=== PATIENT | female | born 1980 | race Caucasian/White ===

== ENCOUNTER 2021-01-06 20:18 | Emergency (ER) | payer MEDICAID, SELFPAY ==
--- NOTE | ~2021-01-06 | XR_ITS ---
EXAMINATION: XR CHEST CLINICAL INFORMATION: Cough COMPARISON: None TECHNIQUE: Frontal view of the chest was obtained. FINDINGS: No significant abnormality is noted involving the heart, lungs, mediastinum, bony thorax or soft tissues. XR/XR chest 1V IMPRESSION: Unremarkable examination.
[2021-01-06 20:30] VITALS: BP 121/86; PULSE 88; RESP 16; TEMP 36.8; O2SAT 96; BMI 21.6
[2021-01-06 22:28] LABS: Influenza A PCR NEGATIVE (Negative); Influenza B PCR NEGATIVE (Negative); Resp Syncy Virus RNA Qual PCR NEGATIVE (Negative); SARS COV2 PCR INHOUSE NEGATIVE (Negative)
--- NOTE | 2021-01-06 22:31 | ECG_ITS ---
Test Reason : CHEST PAIN Blood Pressure : / mmHG Vent. Rate : 075 BPM Atrial Rate : 075 BPM P-R Int : 148 ms QRS Dur : 084 ms QT Int : 382 ms P-R-T Axes : 049 048 042 degrees QTc Int : 426 ms Normal sinus rhythm Normal ECG No previous ECGs available Referred By: Shaista Zamudio Electronically Signed By:JONNIE MALLOY
[2021-01-06 22:48] LABS: MANUAL DIFF FLAG NO
[2021-01-06 22:49] LABS: Basophils Percent Auto 0.2 % (0-2); Eosinophils Absolute Auto 0.3 X10*3/uL (0.0-0.4); Eosinophils Percent Auto 2.1 % (0-4); Hematocrit 36.4 % (37-47); Hemoglobin 12.7 g/dl (12.0-16.0); Imm Gran Abs Auto 0.03 X10*3/uL (0.00-0.03); Imm Gran Pct Auto 0.3 % (0.0-0.4); Lymphocytes Absolute Auto 3.4 X10*3/uL (1.2-4.9); Lymphocytes Percent Auto 29.1 % (20-40); Mean Corpuscular HGB Conc 34.9 g/dl (31.0-35.0); Mean Corpuscular Hemoglobin 30.1 pg (27.0-33.0); Mean Corpuscular Volume 86.3 fL (80-98); Mean Platelet Volume 9.8 fL (9.4-12.3); Monocytes Absolute Auto 0.7 X10*3/uL (0.1-1.2); Monocytes Percent Auto 6.2 % (2-11); Neutrophils Absolute Auto 7.3 X10*3/uL (2.0-8.3); Neutrophils Percent Auto 62.1 % (45-73); Platelet Count 310 X10*3/uL (160-400); Red Blood Count 4.22 X10*6/uL (4.20-5.50); Red Cell Distribution Width 12.6 % (11.0-16.0); White Blood Count 11.7 X10*3/uL (4.8-10.8)
[2021-01-06 23:10] LABS: Anion Gap 13 (12-20); Blood Urea Nitrogen 22 mg/dL (9-16); Calcium 9.8 mg/dL (8.4-10.2); Carbon Dioxide 29 mmol/L (22-29); Chloride 101 mmol/L (96-108); Creatinine Clr Calc Pharmacy 68.3; Estimated Glomerular Filt Rate > 60; Glucose Random 100 mg/dL (60-115); Potassium 3.1 mmol/L (3.3-5.1); Sodium 140 mmol/L (135-145)
[2021-01-06 23:16] LABS: Troponin-I High Sensitivity < 3.5 ng/L (<3.5-17.0)
--- NOTE | 2021-01-06 23:36 | ED_ITS ---
HPI - URI/Sore Throat General Chief Complaint: Upper Respiratory Symptoms Stated Complaint: ?High blood pressure Time Seen by Provider: 01/06/21 22:30 Source: patient Mode of arrival: ambulatory History of Present Illness HPI Narrative: 40-year-old female with a past medical history of hypertension, tubal ligation, presenting to the ED complaining of dry cough, subjective fever, headaches, chest tightness, & mild SOB x2 days. Denies recent travel, LE edema, sick contacts abdominal pain, nausea/vomiting, diarrhea. MD elicited complaint: fever, cough and rhinorrhea Related Data Previous Rx's Medication Instructions Recorded acetaminophen [Tylenol Extra 500 mg PO Q6H PRN #20 tab 01/06/21 Strength] albuterol sulfate 2 puff INHALATION Q4-6H PRN #6.7 g 01/06/21 benzonatate [Tessalon Perles] 100 mg PO TID PRN #14 cap 01/06/21 fluticasone propionate [Flonase 2 spray INTRANASAL DAILY #16 g 01/06/21 Allergy Relief] Allergies Allergy/AdvReac Type Severity Reaction Status Date / Time No Known Allergies Allergy Verified 01/06/21 20:35 Review of Systems Review of Systems: Constitutional: +Subj Fever, + Chills, No Fatigue, No Malaise ENT/Mouth: No Hearing loss, No Ear Pain, + Nasal Congestion, + sore throat, + Rhinorrhea Eyes: No Eye Pain, No Vision Changes Cardiovascular: + Chest Pain, + SOB, No Edema, No Palpitations Respiratory: + Cough, No Sputum, No Wheezing Gastrointestinal: No Nausea, No Vomiting, No Diarrhea, No Constipation, No Abdominal pain Musculoskeletal: No joint pain, No Myalgias, No Joint Swelling Skin: No Skin Lesions, No rash Neuro: No Weakness, No Numbness, + Headache Yes all other systems are reviewed and are negative PMFSH Past Medical History Attestation statement: The following information was validated with the patient. Medical History (Updated 01/06/21 @ 23:43 by YSABEL Krishnamurthy) Hypertension Surgical History (Updated 01/06/21 @ 20:33 by Katy Cesar RN) H/O tubal ligation Social History Social History Advance Directives: No Advance Directives Information Provided: No Patient : No Physical Exam Vital Signs: Vital Signs: Last Vital Signs Temp 98.3 F 01/06/21 20:30 Pulse 88 01/06/21 20:30 Resp 16 01/06/21 20:30 BP 121/86 01/06/21 20:30 Pulse Ox 96 01/06/21 20:30 Body Mass Index 21.6 Const: General: cooperative, healthy appearing and no acute distress Orientation/consciousness: patient oriented x3 Limitations: no limitations HENMT: Head: Yes normal to inspection Ears: hearing grossly normal bilaterally General nose exam: Normal external nose present Face and sinus: Yes normal facial exam Eyes: General: appearance normal, both eyes and all related structures EOM: EOMs intact bilaterally Neck: Neck: Yes normal visual inspection and Yes no meningeal signs Resp: Effort & Inspection: normal respiratory effort Auscultation: clear to auscultation bilaterally, no rhonchi and no wheezes Cardio: Rate: regular rate Heart sounds: S1 normal heart sound present and S2 normal heart sound present GI: Inspection: Yes normal to inspection Palpation (GI): Soft to palpation, nontender, no guarding and not rigid Skin: Rashes: no rashes Wounds: no wounds Neuro: General: patient oriented x3 and no meningeal signs Gait exam (Neuro): Normal gait present Extrem: General: Yes normal to inspection, Yes no pedal edema and Yes no calf tenderness Course Course Course Narrative: -mild leukocytosis of 11.7, potassium low at 3.1 >p.o. repletion ordered, BUN mildly elevated -Troponin negative, COVID-19/influenza/RSV negative XR chest 1V IMPRESSION: Unremarkable examination. >> results discussed with patient including worrisome signs and symptoms and strict return precautions. Patient verbalized understanding feel safe for discharge home MDM - URI/Sore Throat MDM Narrative Medical decision making narrative: 40-year-old female with a past medical history of hypertension, tubal ligation, presenting to the ED complaining of dry cough, subjective fever, headaches, chest tightness, in mild SOB x2 days. On exam vital signs stable, NAD, nontoxic appearing, lungs CTA, no pedal edema or calf tenderness. Concern for viral syndrome/COVID-19 versus pneumonia. Rule out ACS. Low concern for PE Plan: EKG, labs, CXR, COVID-19 testing Medical Records Attestation: I reviewed the patient's medical records. Lab Data Attestation: I reviewed the patient's lab results. Result diagrams: 01/06/21 22:44 01/06/21 22:44 Labs: Lab Results 01/06/21 01/06/21 01/06/21 Range/Units 21:37 22:44 22:44 WBC 11.7 H (4.8-10.8) X10*3/uL RBC 4.22 (4.20-5.50) X10*6/uL Hgb 12.7 (12.0-16.0) g/dl Hct 36.4 L (37-47) % MCV 86.3 (80-98) fL MCH 30.1 (27.0-33.0) pg MCHC 34.9 (31.0-35.0) g/dl RDW 12.6 (11.0-16.0) % Plt Count 310 (160-400) X10*3/uL MPV 9.8 (9.4-12.3) fL Immature Gran % (Auto) 0.3 (0.0-0.4) % Neut % (Auto) 62.1 (45-73) % Lymph % (Auto) 29.1 (20-40) % Lander % (Auto) 6.2 (2-11) % Eos % (Auto) 2.1 (0-4) % Baso % (Auto) 0.2 (0-2) % Lymph # (Auto) 3.4 (1.2-4.9) X10*3/uL Lander # (Auto) 0.7 (0.1-1.2) X10*3/uL Eos # (Auto) 0.3 (0.0-0.4) X10*3/uL Baso # (Auto) 0.0 (0.0-0.2) X10*3/uL Abs Immat Gran (auto) 0.03 (0.00-0.03) X10*3/uL Absolute Neuts (auto) 7.3 (2.0-8.3) X10*3/uL Absolute Nucleated RBC 0.000 (0.0-0.012) X10*3/uL Nucleated RBC % (auto) 0.0 (0.0-0.2) /100WBC Sodium 140 (135-145) mmol/L Potassium 3.1 L (3.3-5.1) mmol/L Chloride 101 (96-108) mmol/L Carbon Dioxide 29 (22-29) mmol/L Anion Gap 13 (12-20) BUN 22 H (9-16) mg/dL Creatinine 0.68 (0.5-1.4) mg/dL Estim Creat Clear Calc 68.3 Estimated GFR > 60 Random Glucose 100 (60-115) mg/dL Calcium 9.8 (8.4-10.2) mg/dL Troponin I High Sens (<3.5-17.0) ng/L Coronavirus (PCR) NEGATIVE (Negative) Influenza Type A (PCR) NEGATIVE (Negative) Influenza Type B (PCR) NEGATIVE (Negative) RSV RNA Qual (PCR) NEGATIVE (Negative) 01/06/21 Range/Units 22:44 WBC (4.8-10.8) X10*3/uL RBC (4.20-5.50) X10*6/uL Hgb (12.0-16.0) g/dl Hct (37-47) % MCV (80-98) fL MCH (27.0-33.0) pg MCHC (31.0-35.0) g/dl RDW (11.0-16.0) % Plt Count (160-400) X10*3/uL MPV (9.4-12.3) fL Immature Gran % (Auto) (0.0-0.4) % Neut % (Auto) (45-73) % Lymph % (Auto) (20-40) % Lander % (Auto) (2-11) % Eos % (Auto) (0-4) % Baso % (Auto) (0-2) % Lymph # (Auto) (1.2-4.9) X10*3/uL Lander # (Auto) (0.1-1.2) X10*3/uL Eos # (Auto) (0.0-0.4) X10*3/uL Baso # (Auto) (0.0-0.2) X10*3/uL Abs Immat Gran (auto) (0.00-0.03) X10*3/uL Absolute Neuts (auto) (2.0-8.3) X10*3/uL Absolute Nucleated RBC (0.0-0.012) X10*3/uL Nucleated RBC % (auto) (0.0-0.2) /100WBC Sodium (135-145) mmol/L Potassium (3.3-5.1) mmol/L Chloride (96-108) mmol/L Carbon Dioxide (22-29) mmol/L Anion Gap (12-20) BUN (9-16) mg/dL Creatinine (0.5-1.4) mg/dL Estim Creat Clear Calc Estimated GFR Random Glucose (60-115) mg/dL Calcium (8.4-10.2) mg/dL Troponin I High Sens < 3.5 (<3.5-17.0) ng/L Coronavirus (PCR) (Negative) Influenza Type A (PCR) (Negative) Influenza Type B (PCR) (Negative) RSV RNA Qual (PCR) (Negative) ECG Data Attestation: I personally reviewed and interpreted this ECG as follows: ECG interpretation date: 01/06/21 ECG interpretation time: 22:27 Interpretation: EKG normal sinus rhythm with a rate of 75. Nonischemic/no STEMI Discharge Plan Discharge Clinical Impression: Upper respiratory infection Patient Disposition: Home, Self-Care Instructions: Viral Syndrome (ED) Additional Instructions: Your blood work and chest x-ray were reassuring today in the ED Your potassium was mildly low however we gave you potassium today in the ED You tested negative for COVID-19, the flu, and RSV Sabillon Perles for cough, take as needed Flonase is an allergy relief medication Use albuterol inhaler at home as needed for shortness of breath/wheezing Follow-up with her primary care doctor If her symptoms persist or worsen, you develop fever, chest pain, or shortness of breath please return to the ED Ayala an?lisis de saad y radiograf?a de t?rax fueron reconfortantes hoy en el servicio de urgencias. Ayala potasio estaba levemente bajo, sin embargo, hoy le dimos potasio en el servicio de urgencias. Result? negativo para COVID-19, gripe y RSV Sabillon Perles para la tos, oswald seg?n sea necesario Flonase es un medicamento para aliviar las alergias. Use el inhalador de albuterol en casa seg?n sea necesario para la dificultad para respirar / sibilancias Seguimiento con ayala m?dico de atenci?n primaria Si willard s?ntomas persisten o empeoran, tiene fiebre, dolor en el pecho o dificultad para respirar, regrese al servicio de urgencias. Prescriptions: New albuterol sulfate 90 mcg/actuation HFA aerosol inhaler 2 puff inhalation Q4-6H PRN (Reason: shortness of breath or wheezing) Qty: 6.7 RF: 0 acetaminophen [Tylenol Extra Strength] 500 mg tablet 500 mg PO Q6H PRN (Reason: pain or fever) Qty: 20 RF: 0 benzonatate [Tessalon Perles] 100 mg capsule 100 mg PO TID PRN (Reason: cough) Qty: 14 RF: 0 fluticasone propionate [Flonase Allergy Relief] 50 mcg/actuation spray,suspension 2 spray intranasal DAILY Qty: 16 RF: 0 Referrals: Carmita Weaver NP [Primary Care Provider] - 2 days Print Language: Kyrgyz
[2021-01-06] MEDS: Potassium Chloride Packet 20 MEQ PACKET 40 MEQ PO (23:52)
== END 2021-01-07 00:38 | disposition home or self-care (01) ==
PROVIDERS: Physician Assistant; Emergency Provider Internal Medicine; PCP Registered Nurse
DX: J06.9 Acute upper respiratory infection, unspecified (principal); Z20.822 Contact with and (suspected) exposure to COVID-19; R06.02 Shortness of breath; R50.9 Fever, unspecified; I10 Essential (primary) hypertension
CPT/HCPCS: 0241U; 36415; 71045; 80048; 84484; 85025; 93005; 99283; 99284

== ENCOUNTER 2021-08-17 09:43 | Outpatient (REF) | payer MEDICAID, SELFPAY ==
--- NOTE | ~2021-08-17 | XR_ITS ---
EXAMINATION: XR CERVICAL SPINE CLINICAL INFORMATION: Cervicalgia COMPARISON: None TECHNIQUE: 6 views of the cervical spine, inclusive of flexion and extension views, were obtained. FINDINGS: The craniocervical junction is normal. The dens and atlantodental articulation are intact. The cervical vertebra have normal height. Alignment is normal. No fracture, subluxation or prevertebral soft tissue swelling. Facet joints are unremarkable. No evidence of neural foraminal stenosis. The spinal curvature is normal. The disc spaces are normal. The visualized lung apices are normal. XR/XR cervical spine min 6V IMPRESSION: No evidence of degenerative disc disease or neural foraminal stenosis. No significant findings in the cervical spine.
== END 2021-08-17 09:44 | disposition home or self-care (01) ==
LOC: HO.XRAY 09:43
PROVIDERS: Visit Provider Emergency Medicine
DX: M54.2 Cervicalgia (principal)
CPT/HCPCS: 72052

== ENCOUNTER 2021-10-09 11:26 | Emergency (ER) | payer MEDICAID, SELFPAY ==
--- NOTE | 2021-10-09 11:59 | ED.GENADULT ---
HPI - General Adult General Chief complaint: Upper Respiratory Symptoms Stated complaint: cough fever throat burning Time Seen by Provider: 10/09/21 11:59 Source: patient Mode of arrival: ambulatory Limitations: no limitations History of Present Illness HPI narrative: Patient is a 41 year old female presenting to the emergency department today with a cough and feeling generally unwell. Patient states that since yesterday she has had a cough and felt generally unwell. Patient denies any dizziness, lightheadedness, abdominal pain, nausea, vomiting,chills, blurry vision, double vision, loss of vision, chest pain, difficulty breathing, shortness of breath, back pain, night sweats, pain with urination, increased urinary frequency, increased urinary urgency, blood in her urine or stool, syncope or a near syncopal episode, recent trauma or falls, bowel incontinence, bladder incontinence, bowel retention, bladder retention, or any other complaints at this time. Onset (ago): day(s) (1) Relieving factors: none Exacerbating factors: none Associated symptoms: cough Treatments prior to arrival: none Related Data Previous Rx's Medication Instructions Recorded acetaminophen 500 mg tablet 500 mg PO Q6H PRN #20 tab 01/06/21 (Tylenol Extra Strength) albuterol sulfate 90 mcg/actuation 2 puff INHALATION Q4-6H PRN #6.7 g 01/06/21 aerosol inhaler benzonatate 100 mg capsule 100 mg PO TID PRN #14 cap 01/06/21 (Tessalon Perles) fluticasone propionate 50 2 spray INTRANASAL DAILY #16 g 01/06/21 mcg/actuation nasal spray,suspension (Flonase Allergy Relief) Allergies Allergy/AdvReac Type Severity Reaction Status Date / Time No Known Allergies Allergy Verified 01/06/21 20:35 Review of Systems Constitutional: Constitutional: Reports no additional constitutional complaints, Denies chills, Reports fever(s) and Denies night sweats Eyes: Eyes: Reports no additional eye complaints, Denies blurry vision, Denies change in vision, Denies diplopia, Denies eye discharge, Denies loss of vision and Denies eye pain ENT: Denies dizziness Cardiovascular: Cardiovascular: Reports no additional cardiovascular complaints, Denies chest pain, Denies lightheadedness, Denies Loss of Consciousness and Denies dyspnea Respiratory: Respiratory: Reports no additional respiratory complaints, Reports cough and Denies dyspnea Gastrointestinal: Gastrointestinal: Reports no additional gastrointestinal complaints, Denies abdominal pain, Denies melena, Denies hematochezia, Denies change in bowel habits and Denies change in stool character Genitourinary: Genitourinary: Denies hematuria, Denies urinary frequency, Denies dysuria, Denies urinary incontinence, Denies urinary hesitancy and Denies urinary urgency Musculoskeletal: Musculoskeletal: Reports no additional musculoskeletal complaints, Denies numbness and Denies tingling Neurologic: Denies dizziness, Denies loss of vision, Denies numbness and Denies tingling Psychiatric: Psychiatric: Reports no additional psychiatric complaints Endocrine: Endocrine: Reports no additional endocrine complaints Hematologic/Lymphatic: Hematologic/Lymphatic: Reports no additional hematologic/lymphatic complaints Allergic/Immunologic: Allergic/Immunologic: Reports no additional allergic/immunologic complaints PMFSH Past Medical History Attestation statement: The following information was validated with the patient. Source: old records reviewed Medical History Hypertension Surgical History H/O tubal ligation Social History Social History Advance Directives: No Advance Directives Information Provided: Yes Physical Exam ED Vital Signs: Vital Signs - 24 hr 10/09/21 12:16 Temperature 98.5 F Pulse Rate 110 H Respiratory Rate 16 Blood Pressure 121/73 Pulse Oximetry 96 BMI result Body Mass Index 24.8 Const General: cooperative, no acute distress, alert and awake Nutritional Appearance: well nourished Orientation/consciousness: patient oriented x3 Limitations: no limitations [facility] Head: Yes normal to inspection and Yes atraumatic Ears: hearing grossly normal bilaterally and external ears normal General nose exam: Normal external nose present, no nasal discharge noted and no epistaxis Face and sinus: Yes normal facial exam, No abrasion and No laceration Mouth: Normal oral and palatal mucosa present, no drooling and no muffled voice Eyes General: appearance normal, both eyes and all related structures Periorbital: periorbital findings normal Eyelids: Yes eyelids normal Conjunctivae: conjunctivae normal Pupils: Equal, round and reactive pupils present EOM: EOMs intact bilaterally Neck Neck: Yes normal visual inspection, Yes full ROM and Yes no lymphadenopathy Chest Chest palpation & inspection: normal inspection of the chest Resp Effort & Inspection: normal respiratory effort and able to speak in complete sentences Auscultation: clear to auscultation bilaterally Cardio Rate: regular rate Rhythm: regular rhythm GI Inspection: Yes normal to inspection Neuro General: patient oriented x3 and moves all extremities Cranial nerves: Yes Equal, round and reactive pupils present Cognition (Neuro): normal cognition Motor exam (neuro): 5/5 motor strength present throughout Sensory Exam: Normal double simultaneous stimulation for sensation Coordination: [id number] test normal Extrem General: Yes normal to inspection, Yes full ROM and Yes capillary refill normal Psych Appearance: grossly normal Mental Status: mental status grossly normal Affect: normal affect Attitude: cooperative Thought process: Normal thought process present Thought content: Normal thought content present Insight: Good insight present (Psych) Medical Decision Making MDM Narrative Medical decision making narrative: Patient is a 41 year old female presenting to the emergency department today with a cough and feeling generally unwell. Patient's physical exam was unremarkable. Patient's rapid influenza was positive. Patient's rapid COVID-19 and strep were negative. I explained my physical exam findings as well as all test results to the patient. I answered all questions asked by the patient. I stressed the importance of the patient taking her medication as prescribed. I stressed the importance of the patient following up with her primary care provider. I stressed the importance of the patient returning to the emergency department immediately if her symptoms were to worsen or if she were to develop any dizziness, shortness of breath, difficulty breathing, chest pain, blurry vision, loss of vision, nausea, vomiting, abdominal pain, fever, chills, back pain, or any other complaints. Patient verbalized agreement and understanding with this treatment plan and discharge. Differential Diagnosis Differential Diagnosis: URI, influenza, COVID-19 Medical Records Medical records reviewed: Yes I reviewed the patient's medical records. Lab Data Lab results reviewed: Yes I reviewed the patient's lab results. Labs: Lab Results 10/09/21 10/09/21 Range/Units 12:17 12:17 Influenza Type A (PCR) POSITIVE A (Negative) Influenza Type B (PCR) NEGATIVE (Negative) RSV RNA Qual (PCR) NEGATIVE (Negative) SARS-CoV-2 RNA (RT-PCR) NEGATIVE (Negative) S. pyogenes GrpA PATTIE Negative (Negative) Discharge Plan Discharge Clinical Impression: Influenza Patient Disposition: Home, Self-Care Instructions: Influenza (DC) Additional Instructions: Follow up with your primary care provider. Return to the emergency department immediately if your symptoms worsen or if you develop any dizziness, shortness of breath, difficulty breathing, chest pain, blurry vision, loss of vision, nausea, vomiting, abdominal pain, fever, chills, back pain, or any other complaints. Prescriptions: No Action albuterol sulfate 90 mcg/actuation HFA aerosol inhaler 2 puff inhalation Q4-6H PRN (Reason: shortness of breath or wheezing) Qty: 6.7 0RF acetaminophen [Tylenol Extra Strength] 500 mg tablet 500 mg PO Q6H PRN (Reason: pain or fever) Qty: 20 0RF benzonatate [Tessalon Perles] 100 mg capsule 100 mg PO TID PRN (Reason: cough) Qty: 14 0RF fluticasone propionate [Flonase Allergy Relief] 50 mcg/actuation spray,suspension 2 spray intranasal DAILY Qty: 16 0RF Rx Instructions: administer into each nostril Referrals: Physician,Unknown J [Primary Care Provider] - (Follow up with your PCP. ) Stand Alone Forms: Work/School Release Interventions: ED Discharge Assessment Last Done: 10/09/21 14:01 Discharge Date/Time: 10/09/21 14:04 Print Language: Serbian
[2021-10-09 12:16] VITALS: BP 121/73; PULSE 110; RESP 16; TEMP 36.9; O2SAT 96; BMI 24.8
[2021-10-09 13:05] LABS: IDNOW Serial# 08D9AD1C; Strep A Nucleic Acid Negative (Negative)
[2021-10-09 13:25] LABS: Influenza A PCR POSITIVE (Negative); Influenza B PCR NEGATIVE (Negative); Resp Syncy Virus RNA Qual PCR NEGATIVE (Negative); SARS COV2 PCR INHOUSE NEGATIVE (Negative)
== END 2021-10-09 14:04 | disposition home or self-care (01) ==
PROVIDERS: Physician Assistant Medical; Emergency Provider Emergency Medicine
DX: J11.1 Influenza due to unidentified influenza virus with other respiratory manifestations (principal); Z20.822 Contact with and (suspected) exposure to COVID-19
CPT/HCPCS: 0241U; 87651; 99283

== ENCOUNTER 2022-05-03 12:43 | Outpatient (REF) | payer MEDICAID, SELFPAY ==
[2022-05-03 13:46] LABS: Hematocrit 38.2 % (37.0-47.0); Hemoglobin 12.9 g/dl (12.0-16.0); Mean Corpuscular HGB Conc 33.8 g/dl (31.0-35.0); Mean Corpuscular Hemoglobin 29.9 pg (27.0-33.0); Mean Corpuscular Volume 88.6 fL (80.0-98.0); Mean Platelet Volume 9.9 fL (9.4-12.3); Platelet Count 354 X10*3/uL (160-400); Red Blood Count 4.31 X10*6/uL (4.20-5.50); White Blood Count 9.4 X10*3/uL (4.8-10.8)
[2022-05-03 14:21] LABS: HCG Quantitative < 2 mIU/mL
[2022-05-03 15:18] LABS: CT PCR NOT DETECTED (Not Detect.); NG PCR NOT DETECTED (Not Detect.)
== END 2022-05-03 12:44 | disposition home or self-care (01) ==
LOC: HO.LNP 12:43
PROVIDERS: Visit Provider Obstetrics & Gynecology
DX: N93.9 Abnormal uterine and vaginal bleeding, unspecified (principal)
CPT/HCPCS: 84443; 84702; 85027; 87491; 87591; 99202

== ENCOUNTER → 2022-05-21 07:50 | Outpatient (BNVA) | payer MEDICAID, SELFPAY | PROVIDERS: PCP Advanced Practice Midwife; Visit Provider Obstetrics & Gynecology | DX: N93.9 Abnormal uterine and vaginal bleeding, unspecified (principal); N83.299 Other ovarian cyst, unspecified side | CPT/HCPCS: 99212 ==

== ENCOUNTER 2022-06-01 08:37 | Day surgery (SDC) | payer MEDICAID, SELFPAY ==
--- NOTE | 2022-05-31 09:34 | HO.ANESPROP2 ---
Documented by User: Pamela Chavez NP 05/31/22 09:35 HPI - Anesthesia Eval Consult details Narrative: 42yo F for D&C Hysteroscopy,poss polyperctomy,poss myomectomy PMFSH Active Problems Active Problems: All Active Problems (Updated 05/21/22 @ 08:25 by Lavon Anglin MD) Complex ovarian cyst (Acute) Abnormal uterine bleeding (Acute) Past Medical History Medical History Hypertension Surgical History Surgical History H/O tubal ligation Social History Social History Patient Tobacco Use Status: Current everyday Tobacco user Tobacco use type: Cigarette Date Education Initiated: 06/01/22 Use of substances other than those prescribed or required for medical reasons: No Are you DNR?: No Advance Directives: No Advance Directives Information Provided: Yes Patient : No Meds Allergies Allergy/AdvReac Type Severity Reaction Status Date / Time No Known Allergies Allergy Verified 05/21/22 08:13 Home Medications Medication Instructions Recorded Confirmed Last Taken Type chlorthalidone 25 mg tablet 25 mg PO DAILY 05/03/22 05/29/22 06/01/22 History loratadine 10 mg tablet 10 mg PO DAILY 05/03/22 05/29/22 Unknown History rosuvastatin 5 mg tablet 1 tab PO DAILY 05/29/22 05/29/22 Unknown History Exam Exam Date and Time: May 31, 2022 0934 Assessment and Plan Assessment Anesthesia Assessment: Chart Reviewed Documented by User: Syd Sánchez MD 06/01/22 10:54 PMFSH Past Medical History Medical History Hypertension Patient : No Family History Family history of problems with anesthesia: No Surgical History Surgical History H/O tubal ligation History of Problems with Anesthesia: No Social History Social History Patient Tobacco Use Status: Current everyday Tobacco user Tobacco use type: Cigarette Date Education Initiated: 06/01/22 Use of substances other than those prescribed or required for medical reasons: No Are you DNR?: No Advance Directives: No Advance Directives Information Provided: Yes Patient : No Meds Allergies Allergy/AdvReac Type Severity Reaction Status Date / Time No Known Allergies Allergy Verified 05/21/22 08:13 Home Medications Medication Instructions Recorded Confirmed Last Taken Type chlorthalidone 25 mg tablet 25 mg PO DAILY 05/03/22 05/29/22 06/01/22 History loratadine 10 mg tablet 10 mg PO DAILY 05/03/22 05/29/22 Unknown History rosuvastatin 5 mg tablet 1 tab PO DAILY 05/29/22 05/29/22 Unknown History Exam Airway Mallampati Class: I TM Dist: >3cm Neck ROM: Full Loose/Missing/Broken Teeth: No Heart: ok Lungs: ok Assessment and Plan Final Anesthetic Review Family History of Problems with Anesthesia: No History of Problems with Anesthesia: No NPO: Yes ASA Class: II Final Preanesthetic Review: No Changes in Pt Med Stat, Meds/Allgs Chart Reviewed, Consent Obtained/Reviewed and Anes Risks/Benef Reviewed Patient Risk: Low Procedure Risk: Low Anesthetic Plan Anesthetic Plan: GA and Agree w/ Assess. and Plan Disposition: Standard PACU
[2022-06-01 09:13] VITALS: BP 115/65; PULSE 80; RESP 18; TEMP 36.9; O2SAT 100; BMI 22.2
[2022-06-01 09:24] VITALS: BMI 22.2
[2022-06-01 09:38] LABS: UPreg QC Valid YES; Urine Pregnancy NEGATIVE (NEGATIVE)
[2022-06-01] MEDS: Lactated Ringers 1,000 ML 100 ML IVCONT (09:57)
--- NOTE | 2022-06-01 10:22 | MHC.SHP ---
Pre-Procedural Eval Section A Date of Service: 06/01/22 The patient is an INPATIENT: No Changes since office visit: No Cold of Flu in the past 2 weeks, No New Medical Problems, No Changes in Medication and No Patient answered all questions The History & Physical has been completed within 30 days and I have reviewed it.: Yes Section B Chief Complaint: Abnormal uterine and vaginal bleeding, Allergies: Allergies Allergy/AdvReac Type Severity Reaction Status Date / Time No Known Allergies Allergy Verified 05/21/22 08:13 Plan Diagnosis/Plan: Unchanged I have reviewed the history and physical and performed a pertinent physical examination on my patient. No changes have occurred unless specified.
--- NOTE | 2022-06-01 11:18 | P.BOP_ITS ---
Brief Operative Note Date of Service: 06/01/22 Pre-op diagnosis: Abnormal uterine bleeding Post-op diagnosis: same (Normal endometrial cavity) Procedure: Hysteroscopy D&C Surgeon: Lavon Anglin MD Anesthesia: GLMA Was an Diplomatic Interpreter/Translator used for this Procedure?: No Estimated blood loss (mL): 0 Pathology: other (Endometrial Scrapping. ) Condition: stable Disposition: PACU
--- NOTE | 2022-06-01 11:18 | P.OP_ITS ---
Operative Note Operative Note Date of Service: 06/01/22 Narrative: Preop Diagnosis: Abnormal uterine bleeding Operation: Diagnostic Hysteroscopy, Dilataion & Curettage Post Op Diagnosis: Normal endometrial and endocervical cavity, no evidence of pathology QBL: Minimal Anesthesia: GLMA Surgeon: Lavon Anglin MD [employer] Manager: None Complication: None Pathology: Endometrial Scrapings Procedure: The patient was put in the dorsal lithotomy position, scrubbed, and draped in the usual manner. A sterile speculum was inserted in the patient's vagina. The anterior lip of the cervix was grasped with a single tooth tenaculum. The cervix was dilated up to 5 mm, then the scope was inserted in the patient's uterus. Inspection revealed normal endocervical & endometrial cavity with no evidence of pathology. The scope was taken out of the uterine cavity , then sharp curetting was carried on with no complications. At the end of the procedure, all instruments were taken out of the patient uterine and vaginal cavity. The single tooth tenaculum was removed and homeostasis was assured using pressure. The patient tolerated the procedure well and was transferred to the PACU in a stable condition.
[2022-06-01 11:20] VITALS: BP 130/91; PULSE 107; RESP 16; TEMP 37.3; O2SAT 99
[2022-06-01 11:25] VITALS: BP 130/81; PULSE 90; RESP 16; O2SAT 99
[2022-06-01 11:30] VITALS: BP 135/78; PULSE 86; RESP 16; O2SAT 99
[2022-06-01 11:35] VITALS: BP 134/79; PULSE 80; RESP 16; TEMP 37.3; O2SAT 100
== END 2022-06-01 12:30 | disposition home or self-care (01) ==
PROVIDERS: Visit Provider Obstetrics & Gynecology
PROC: 0UDB8ZZ Extraction of Endometrium, Via Natural or Artificial Opening Endoscopic (ICD-10-PCS; CPT 58558; principal; 2022-06-01 10:30)
DX: N93.9 Abnormal uterine and vaginal bleeding, unspecified (principal); N83.299 Other ovarian cyst, unspecified side; Z98.51 Tubal ligation status; I10 Essential (primary) hypertension; F17.210 Nicotine dependence, cigarettes, uncomplicated; Z79.899 Other long term (current) drug therapy
CPT/HCPCS: 58558; 81025; 88305; J1100; J2405; J3010

== ENCOUNTER 2022-06-07 12:02 | Outpatient (REF) | payer MEDICAID, SELFPAY ==
--- NOTE | ~2022-06-07 | MM_ITS ---
EXAMINATION: MM SCREENING DIGITAL BREAST TOMOSYNTHESIS, BILATERAL CLINICAL INFORMATION: Screening. Asymptomatic. The lifetime risk of breast cancer based on the Tyrer-Cuzick Model is 8.6%. COMPARISON: Mammography: None TECHNIQUE: Digital breast tomosynthesis is performed in both the craniocaudal and mediolateral oblique views along with computer-aided detection (CAD). Synthesized 2D images are generated from the tomosynthesis. FINDINGS: The breasts are extremely dense, which lowers the sensitivity of mammography (ACR BI-RADS breast composition Category d). There are no significant masses, abnormal calcifications, or other abnormalities. MM/MM tomosynthesis screening BI IMPRESSION: No mammographic evidence of malignancy. ASSESSMENT: BI-RADS 1: Negative RECOMMENDATION: Routine annual mammography screening. This patient's information was entered into a reminder system with a target due date for their next mammogram.
== END 2022-06-07 12:03 | disposition home or self-care (01) ==
LOC: HO.MAMMO 12:02
PROVIDERS: Visit Provider Obstetrics & Gynecology
DX: Z12.31 Encounter for screening mammogram for malignant neoplasm of breast (principal)
CPT/HCPCS: 77063; 77067

== ENCOUNTER → 2022-06-19 08:50 | Outpatient (BNVA) | payer MEDICAID, SELFPAY | PROVIDERS: Visit Provider Obstetrics & Gynecology | DX: N83.299 Other ovarian cyst, unspecified side (principal); N93.9 Abnormal uterine and vaginal bleeding, unspecified | CPT/HCPCS: 99212 ==

== ENCOUNTER 2022-09-17 13:51 | Outpatient (REF) | payer MEDICAID, SELFPAY ==
--- NOTE | ~2022-09-17 | US_ITS ---
EXAM: Pelvic Ultrasound CLINICAL INDICATION: Ovarian cyst COMPARISON: pelvic ultrasound 04/02/2022 TECHNIQUE: The pelvis was evaluated using transabdominal and transvaginal imaging. FINDINGS: The uterus measures 11.5 x 3.7 x 6.5 cm in longitudinal by AP by transverse dimension. The uterus demonstrates overall heterogeneous echotexture. The endometrial stripe is not thickened and measures 1 cm. There is a possible approximately 1.5 cm within the anterior uterine fundus. The left ovary measures approximately 3.9 x 2.3 x 2.2 cm and is normal. The right ovary measures approximately 4.1 x 3.0 x 2.5 cm and contains a 2.9 cm complex appearing cyst, suspected corpus luteum. There is no free fluid in the pelvis. US/US pelvic and transvaginal IMPRESSION: 1. Suspected 1.5 cm uterine fibroid. 2. Suspected corpus luteum of the right ovary. 3. Normal thickness endometrial stripe.
== END 2022-09-17 13:52 | disposition home or self-care (01) ==
LOC: HO.US 13:51
PROVIDERS: Visit Provider Obstetrics & Gynecology
DX: N83.299 Other ovarian cyst, unspecified side (principal)
CPT/HCPCS: 76830; 76856

== ENCOUNTER 2022-10-01 14:55 | Emergency (ER) | payer MEDICAID, SELFPAY ==
--- NOTE | ~2022-10-01 | XR_ITS ---
EXAMINATION: XR foot LT min 3V, XR ankle LT min 3V CLINICAL INFORMATION: Pain and swelling COMPARISON: None. TECHNIQUE: 3 views of the left foot. 2 additional views of the left ankle. FINDINGS: Left foot: No fracture or dislocation. Alignment is maintained. Joint spaces are maintained. The soft tissues are unremarkable. Small plantar heel spur. Left ankle: No fracture or dislocation. The ankle mortise is congruent. No ankle joint effusion. The soft tissues are unremarkable. XR/XR ankle LT min 3V IMPRESSION: No fracture or malalignment involving the left foot or ankle. Small plantar heel spur.
--- NOTE | ~2022-10-01 | XR_ITS ---
EXAMINATION: XR foot LT min 3V, XR ankle LT min 3V CLINICAL INFORMATION: Pain and swelling COMPARISON: None. TECHNIQUE: 3 views of the left foot. 2 additional views of the left ankle. FINDINGS: Left foot: No fracture or dislocation. Alignment is maintained. Joint spaces are maintained. The soft tissues are unremarkable. Small plantar heel spur. Left ankle: No fracture or dislocation. The ankle mortise is congruent. No ankle joint effusion. The soft tissues are unremarkable. XR/XR foot LT min 3V IMPRESSION: No fracture or malalignment involving the left foot or ankle. Small plantar heel spur.
[2022-10-01 15:05] VITALS: BP 132/70; PULSE 98; RESP 18; TEMP 36.9; O2SAT 97; BMI 23.8
--- NOTE | 2022-10-01 15:06 | ED.LOWEXIN ---
HPI - Extremity Injury (Lower) General Chief Complaint: Extremity Injury, Lower <YSABEL Garcia Last Filed: 10/01/22 15:08> Stated Complaint: l foot inj <YSABEL Garcia Last Filed: 10/01/22 15:08> Time Seen by Provider: 10/01/22 15:27 <YSABEL Garcia Last Filed: 10/01/22 15:08> Source: patient and RN notes reviewed <YSABEL Livingston Last Filed: 10/01/22 19:07> Mode of arrival: ambulatory <YSABEL Livingston Last Filed: 10/01/22 19:07> Limitations: language barrier <YSABEL Livingston Last Filed: 10/01/22 19:07> History of Present Illness HPI Narrative: This is a 42 year old [place]illan-speaking female, with a past medical history of hypertension, who presents emergency department today, accompanied by her niece, with complaints of left ankle pain since yesterday. Patient states that she was walking and accidentally inverted her left ankle. She denies falling to the ground or hitting her head. Patient reports that she has been able to bear weight however reports pain with weight-bearing as well as specific movements of her left ankle. Denies any calf tenderness. She denies any history of prior injuries to this ankle in the past. She has not taken any ibuprofen or Tylenol at home for her pain. No other complaints or concerns at this time. <YSABEL Livingston Last Filed: 10/01/22 19:07> MD complaint: ankle injury <YSABEL Livingston Last Filed: 10/01/22 19:07> Onset (ago): day(s) <YSABEL Livingston Last Filed: 10/01/22 19:07> Type of Injury: inversion <YSABEL Livingston Last Filed: 10/01/22 19:07> Place: home <YSABEL Livingston Last Filed: 10/01/22 19:07> Severity: moderate <YSABEL Livingston Last Filed: 10/01/22 19:07> Relieving factors: nothing <YSABEL Livingston Last Filed: 10/01/22 19:07> Exacerbating factors: weight bearing, movement and palpation <YSABEL Livingston - Last Filed: 10/01/22 19:07> Associated symptoms: swelling and able to partially bear weight <YSABEL Livingston - Last Filed: 10/01/22 19:07> Other symptoms: none <YSABEL Livingston - Last Filed: 10/01/22 19:07> Related Data Home Medications: Home Medications Medication Instructions Recorded Confirmed chlorthalidone 25 mg tablet 25 mg PO DAILY 05/03/22 05/29/22 loratadine 10 mg tablet 10 mg PO DAILY 05/03/22 05/29/22 rosuvastatin 5 mg tablet 1 tab PO DAILY 05/29/22 05/29/22 Previous Rx's Medication Instructions Recorded acetaminophen 500 mg tablet 500 mg PO Q6H PRN pain or fever 01/06/21 (Tylenol Extra Strength) #20 tabs albuterol sulfate 90 mcg/actuation 2 puff inhalation Q4-6H PRN 01/06/21 aerosol inhaler shortness of breath or wheezing #6.7 grams fluticasone propionate 50 2 spray intranasal DAILY #16 grams 01/06/21 mcg/actuation nasal spray,suspension (Flonase Allergy Relief) ibuprofen 600 mg tablet 600 mg PO Q8H PRN pain #60 tabs 10/01/22 <YSABEL Garcia - Last Filed: 10/01/22 15:08> Allergies/Adverse Reactions: Allergies Allergy/AdvReac Type Severity Reaction Status Date / Time No Known Allergies Allergy Verified 06/19/22 09:01 <YSABEL Garcia - Last Filed: 10/01/22 15:08> Review of Systems Review of Systems: Yes all other systems are reviewed and are negative <YSABEL Livingston - Last Filed: 10/01/22 19:07> FOR[facility]LY [facility] Past Medical History Medical History: Medical History Hypertension <YSABEL Garcia - Last Filed: 10/01/22 15:08> Surgical History: Surgical History H/O tubal ligation <YSABEL Garcia - Last Filed: 10/01/22 15:08> Social History Social History: Social History Patient Tobacco Use Status: Current everyday Tobacco user Tobacco use type: Cigarette Advance Directives: No Advance Directives Information Provided: No <YSABEL Garcia - Last Filed: 10/01/22 15:08> Physical Exam Vital Signs: Vital Signs: Last Vital Signs Temp 98.5 F 10/01/22 15:05 Pulse 98 10/01/22 15:05 Resp 18 10/01/22 15:05 BP 132/70 10/01/22 15:05 Pulse Ox 97 10/01/22 15:05 O2 Del Method Room Air 10/01/22 15:05 BMI result Body Mass Index 23.8 <YSABEL Garcia - Last Filed: 10/01/22 15:08> Vital Signs: Last Vital Signs Temp 98.5 F 10/01/22 15:05 Pulse 98 10/01/22 15:05 Resp 18 10/01/22 15:05 BP 132/70 10/01/22 15:05 Pulse Ox 97 10/01/22 15:05 O2 Del Method Room Air 10/01/22 15:05 BMI result Body Mass Index 23.8 <YSABEL Livingston - Last Filed: 10/01/22 19:07> General: Awake, alert, and oriented X3. No acute distress. HEENT: Normal inspection CVS: Normal heart rate and rhythm. Pulses normal. Respiratory: No respiratory distress Skin: Warm, dry, no rashes noted to exposed skin. Normal skin color. Normal skin turgor. Extremities: Left ankle lateral malleolus with moderate edema but no tenderness, no ecchymosis or open wounds. No tenderness over the medial or lateral mallelous. Able to plantar/dorsiflex. Pain with inversion of the right ankle. Good range of motion of the tarsals, no tenderness along the tarsals or metatarsals. No tenderness to palpation over the left fifth metatarsal. Distal sensation and circulation intact. Good pedal pulses. Neuro: Oriented X 3. No motor deficit. No sensory deficit. <YSABEL Livingston - Last Filed: 10/01/22 19:07> Course Course Course Narrative: RME - 42 yo [place] speaking female presents to the ER for evaluation of left foot and ankle pain and swelling that started yesterday. Cannot recall any trauma. She is ambulatory. No redness or warmth. X-rays ordered <YSABEL Garcia - Last Filed: 10/01/22 15:08> Medical Decision Making Medical Decision Making MDM Narrative: 42-year-old [place]illan-speaking female presenting to the emergency department for evaluation of left ankle pain since yesterday. The left foot and ankle x-ray ordered and reviewed as no fracture or malalignment involving the left foot or ankle. Left ankle placed in Alli wrap. Given instructions on R.I.C.E. patient understands and agrees with plan. Discharged with prescription for ibuprofen. Patient is stable for discharge. <YSABEL Livingston - Last Filed: 10/01/22 19:07> Differential Diagnosis Differential Diagnoses: The differential diagnosis associated with the presentation includes <YSABEL Livingston - Last Filed: 10/01/22 19:07> Left ankle fracture, sprain, strain, contusion <YSABEL Livingston - Last Filed: 10/01/22 19:07> Radiology Impression Discussion of test interpretation with radiology: I have reviewed the radiologist's reading. <YSABEL Livingston - Last Filed: 10/01/22 19:07> Radiologist Impression: EXAMINATION: XR foot LT min 3V, XR ankle LT min 3V CLINICAL INFORMATION: Pain and swelling COMPARISON: None. TECHNIQUE: 3 views of the left foot. 2 additional views of the left ankle. FINDINGS: Left foot: No fracture or dislocation. Alignment is maintained. Joint spaces are maintained. The soft tissues are unremarkable. Small plantar heel spur. Left ankle: No fracture or dislocation. The ankle mortise is congruent. No ankle joint effusion. The soft tissues are unremarkable. XR/XR foot LT min 3V IMPRESSION: No fracture or malalignment involving the left foot or ankle. Small plantar heel spur. ? Dictated By: Chito Lovell MD <YSABEL Livingston - Last Filed: 10/01/22 19:07> Independent Historian Clinical information obtained from an independent historian. History obtained from or confirmed by: Friend <YSABEL Livingston - Last Filed: 10/01/22 19:07> Discharge Plan Discharge Clinical Impression: Left ankle sprain <YSABEL Garcia - Last Filed: 10/01/22 15:08> Patient Disposition: Home, Self-Care <YSABEL Garcia - Last Filed: 10/01/22 15:08> Instructions: Ankle Sprain (ED) <YSABEL Garcia - Last Filed: 10/01/22 15:08> Additional Instructions: Your x-rays performed today showed no left ankle or foot fracture. Please rest, ice, wear Alli wrap, and elevate your left foot and ankle. Take prescribed ibuprofen for your pain. Make sure you take this with food to prevent upset stomach. Gentle stretching and exercises can help strengthen the left ankle. If any new or worsening symptoms occur please return for re-evaluation. Las radiograf?as que le hicieron hoy no mostraron fractura en el pie ni en el tobillo franchesca. Por favor, descanse, use hielo, use vendaje Alli y eleve el pie y el tobillo izquierdos. [place] ibuprofeno recetado para ingram dolor. Aseg?rese de oswald esto con alimentos para evitar malestar estomacal. Los ejercicios y estiramientos suaves pueden ayudar a fortalecer el tobillo franchesca. Si se presentan s?ntomas nuevos o que empeoran, regrese para aimee reevaluaci?n. <YSABEL Garcia - Last Filed: 10/01/22 15:08> Prescriptions: New ibuprofen 600 mg tablet 600 mg PO Q8H PRN (Reason: pain) Qty: 60 0RF No Action albuterol sulfate 90 mcg/actuation HFA aerosol inhaler 2 puff inhalation Q4-6H PRN (Reason: shortness of breath or wheezing) Qty: 6.7 0RF acetaminophen [Tylenol Extra Strength] 500 mg tablet 500 mg PO Q6H PRN (Reason: pain or fever) Qty: 20 0RF fluticasone propionate [Flonase Allergy Relief] 50 mcg/actuation spray,suspension 2 spray intranasal DAILY Qty: 16 0RF Rx Instructions: administer into each nostril rosuvastatin 5 mg tablet 1 tab PO DAILY chlorthalidone 25 mg tablet 25 mg PO DAILY loratadine 10 mg tablet 10 mg PO DAILY <YSABEL Garcia - Last Filed: 10/01/22 15:08> Interventions: ED Discharge Assessment Last Done: 10/01/22 16:53 <YSABEL Garcia - Last Filed: 10/01/22 15:08> Discharge Date/Time: 10/01/22 16:54 <YSABEL Garcia - Last Filed: 10/01/22 15:08> Print Language: Anguillan <YSABEL Garcia - Last Filed: 10/01/22 15:08>
== END 2022-10-01 16:54 | disposition home or self-care (01) ==
PROVIDERS: Emergency Provider Emergency Medicine
DX: S93.402A Sprain of unspecified ligament of left ankle, initial encounter (principal); M79.672 Pain in left foot; X50.1XXA Overexertion from prolonged static or awkward postures, initial encounter; Y93.9 Activity, unspecified; Y92.9 Unspecified place or not applicable; Y99.9 Unspecified external cause status
CPT/HCPCS: 73610; 73630; 99282; 99283

== ENCOUNTER → 2022-10-16 14:39 | Outpatient (BNVA) | payer MEDICAID, SELFPAY | PROVIDERS: Visit Provider Obstetrics & Gynecology | DX: N83.291 Other ovarian cyst, right side (principal); I10 Essential (primary) hypertension | CPT/HCPCS: 99212 ==

== ENCOUNTER 2022-10-26 14:41 | Outpatient (REF) | payer MEDICAID, SELFPAY ==
--- NOTE | ~2022-10-26 | US_ITS ---
EXAMINATION: ULTRASOUND OF THE PELVIS CLINICAL INFORMATION: Ovarian cyst. COMPARISON: 09/17/2022. TECHNIQUE: Transabdominal and transvaginal pelvic ultrasound. A transvaginal study was performed in addition to the transabdominal study which did not yield an adequate examination of the uterus and ovaries due to superimposed distended gas-filled loops of bowel. FINDINGS: The uterus is normal in size and appearance, measuring 8.7 x 4.2 x 6.4 cm longitudinally, anteroposteriorly and transversely. The endometrial stripe thickness is normal, measuring 0.9 cm in thickness. No focal myometrial mass is seen. The ovaries bilaterally are visualized and appear normal, with the right ovary measuring 4.6 x 1.9 x 3.2 cm and the left ovary measuring 3.2 x 2 x 2.3 cm. Right-sided hemorrhagic cyst measures 3.4 x 1.8 x 2.8 cm. Small volume of pelvic free fluid noted. US/US pelvic and transvaginal IMPRESSION: Right-sided hemorrhagic cyst. Small volume of pelvic free fluid.
== END 2022-10-26 14:42 | disposition home or self-care (01) ==
LOC: HO.US 14:41
PROVIDERS: Visit Provider Obstetrics & Gynecology
DX: N83.291 Other ovarian cyst, right side (principal)
CPT/HCPCS: 76830; 76856

== ENCOUNTER 2022-10-27 18:55 | Emergency (ER) | payer MEDICAID, SELFPAY ==
--- NOTE | ~2022-10-27 | CT_ITS ---
EXAMINATION: CT ABDOMEN AND PELVIS WITHOUT CONTRAST CLINICAL INFORMATION: Abdominal pain COMPARISON: Ultrasound 10/26/2022 TECHNIQUE: Multidetector volumetric imaging was performed from the superior aspect of the liver through the pubic symphysis. Sagittal and coronal reformatted images were obtained on the technologist's workstation. This CT examination was performed using dose optimization techniques as appropriate, variously including the following: *Automated exposure control *Adjustment of mA and/or kV according to patient size (this includes techniques or standardized protocols for targeted exams where dose is matched to indication/reason for exam; i.e. extremities or head) *Use of iterative reconstruction technique DLP: 344 mGy-cm FINDINGS: LUNG BASES: The visualized lung bases are unremarkable. LIVER, GALLBLADDER, AND BILIARY TREE: The liver is normal in size, shape, and attenuation. No focal hepatic lesion or biliary ductal dilatation is present. The gallbladder is contracted with no evidence of radiopaque gallstones, gallbladder wall thickening, or obvious pericholecystic inflammatory changes. PANCREAS: Unremarkable. SPLEEN: Unremarkable. ADRENAL GLANDS: Unremarkable. KIDNEYS AND URETERS: The kidneys are normal in size, shape, and attenuation. No hydronephrosis, hydroureter, or calculi seen. No perinephric stranding. BLADDER: Unremarkable. GASTROINTESTINAL TRACT: The stomach is unremarkable. Normal caliber of the small bowel. No obstruction. Normal appendix. Moderate diffuse colonic stool burden. No bowel wall thickening or inflammation. No free air. Small volume pelvic free fluid. ABDOMINAL WALL: No significant hernia is appreciated. LYMPH NODES: Normal. VASCULAR: Unremarkable. PELVIC VISCERA: Anteverted uterus. Right adnexal cyst measures 3.4 x 2.4 cm, likely corresponding to the hemorrhagic cyst seen on prior ultrasound. OSSEOUS STRUCTURES: No acute or suspicious osseous abnormality. CT/CT abdomen pelvis wo IV con IMPRESSION: 1. No acute finding of the abdomen or pelvis. No inflammatory changes. 2. Right adnexal cyst, likely corresponding to the hemorrhagic cyst seen on prior ultrasound. Small volume pelvic free fluid. 3. Moderate colonic stool burden. Fleischner guidelines were followed.
[2022-10-27 19:40] VITALS: BP 136/80; PULSE 88; RESP 18; TEMP 36.9; O2SAT 97; BMI 24.6
--- NOTE | 2022-10-27 19:43 | ED.GENADULT ---
HPI - General Adult General Chief complaint: Abdominal Pain <YSABEL Livingston - Last Filed: 10/27/22 19:46> Stated complaint: abd pain <YSABEL Livingston - Last Filed: 10/27/22 19:46> Time Seen by Provider: 10/27/22 20:31 <YSABEL Livingston - Last Filed: 10/27/22 19:46> History of Present Illness HPI narrative: 42-year-old female is here today for complaining of right lower quadrant discomfort. Patient was seen by her provider few days ago and was found to have right ovarian cyst. Patient had ultrasound done yesterday no results available yet. Patient denies any nausea or vomiting. Reports use urinary frequency and burning with urination. Patient denies any other GI concerning symptoms. <ABILIO Charles - Last Filed: 10/28/22 00:41> Related Data Home medications: Home Medications Medication Instructions Recorded Confirmed chlorthalidone 25 mg tablet 25 mg PO DAILY 05/03/22 05/29/22 loratadine 10 mg tablet 10 mg PO DAILY 05/03/22 05/29/22 rosuvastatin 5 mg tablet 1 tab PO DAILY 05/29/22 05/29/22 Previous Rx's Medication Instructions Recorded acetaminophen 500 mg tablet 500 mg PO Q6H PRN pain or fever 01/06/21 (Tylenol Extra Strength) #20 tabs albuterol sulfate 90 mcg/actuation 2 puff inhalation Q4-6H PRN 01/06/21 aerosol inhaler shortness of breath or wheezing #6.7 grams fluticasone propionate 50 2 spray intranasal DAILY #16 grams 01/06/21 mcg/actuation nasal spray,suspension (Flonase Allergy Relief) ibuprofen 600 mg tablet 600 mg PO Q8H PRN pain #60 tabs 10/01/22 polyethylene glycol 3350 17 17 g PO DAILY #119 grams 10/28/22 gram/dose oral powder (Miralax) tramadol 50 mg tablet 50 mg PO DAILY PRN pain #7 tabs 10/28/22 <YSABEL Livingston - Last Filed: 10/27/22 19:46> Allergies/adverse reactions: Allergies Allergy/AdvReac Type Severity Reaction Status Date / Time No Known Allergies Allergy Verified 10/16/22 15:02 <YSABEL Livingston - Last Filed: 10/27/22 19:46> Review of Systems Review of Systems: Constitutional : No Weight loss, No Fever, No Chills, No Night Sweats, No Fatigue, No Malaise ENT/Mouth : No Hearing loss, No Ear Pain, No Nasal Congestion, No Sinus Pain, No Hoarseness, No sore throat, No Rhinorrhea, No Swallowing Difficulty Eyes: No Eye Pain, No Swelling, No Redness, No Foreign Body, No Discharge, No Vision Changes Cardiovascular : No Chest Pain, No SOB, No Dyspnea on Exertion, No Orthopnea, No Edema, No Palpitations Respiratory : No Cough, No Sputum, No Wheezing, No Smoke Exposure, No Dyspnea Gastrointestinal : No Nausea, No Vomiting, No Diarrhea, No Constipation, RLQ abdominal Pain, No Hematochezia, No Melena Genitourinary : no irregular bleeding, No Dysuria, No Urinary Frequency, No Hematuria, No Urinary Incontinence, No Urgency, No Flank Pain, No Urinary Flow Changes, No Hesitancy Musculoskeletal : No joint pain, No Myalgias, No Joint Swelling Skin : No Skin Lesions, No rash <SHELBY Charles-JESS - Last Filed: 10/28/22 00:41> Yes all other systems are reviewed and are negative <SHELBY Charles-JESS - Last Filed: 10/28/22 00:41> PMFSH Past Medical History Medical History: Medical History Hypertension <YSABEL Livingston - Last Filed: 10/27/22 19:46> Surgical History: Surgical History H/O tubal ligation <YSABEL Livingston - Last Filed: 10/27/22 19:46> Social History Social History: Social History Alcohol intake: current Alcohol intake frequency: holidays/special occasions only Alcohol type: hard liquor Patient Tobacco Use Status: Current everyday Tobacco user Tobacco use type: Cigarette Smoked in Last 30 Days: Yes Use of substances other than those prescribed or required for medical reasons: No Advance Directives: No Advance Directives Information Provided: No Patient : No <Marilin MacarioYSABEL carvajal - Last Filed: 10/27/22 19:46> Physical Exam ED Vital Signs: Vital Signs - 24 hr 10/27/22 19:40 10/27/22 21:47 Temperature 98.4 F Pulse Rate 88 77 Respiratory Rate 18 16 Blood Pressure 136/80 125/69 Pulse Oximetry 97 98 Oxygen Delivery Method Room Air Room Air BMI result Body Mass Index 24.6 <Marilin MacarioYSABEL carvajal - Last Filed: 10/27/22 19:46> Vital Signs - 24 hr 10/27/22 19:40 10/27/22 21:47 Temperature 98.4 F Pulse Rate 88 77 Respiratory Rate 18 16 Blood Pressure 136/80 125/69 Pulse Oximetry 97 98 Oxygen Delivery Method Room Air Room Air BMI result Body Mass Index 24.6 <SHELBY Charles-BC - Last Filed: 10/28/22 00:41> Const General: cooperative, no acute distress, alert and awake <SHELBY Charles-BC - Last Filed: 10/28/22 00:41> Nutritional Appearance: well nourished <SHELBY Charles-BC - Last Filed: 10/28/22 00:41> Orientation/consciousness: patient oriented x3 <SHELBY Charles-BC - Last Filed: 10/28/22 00:41> Limitations: no limitations <SHELBY Charles-BC - Last Filed: 10/28/22 00:41> HENMT Head: Yes normal to inspection and Yes atraumatic <SHELBY Charles-BC - Last Filed: 10/28/22 00:41> Ears: hearing grossly normal bilaterally and external ears normal <SHELBY Charles-BC - Last Filed: 10/28/22 00:41> General nose exam: Normal external nose present, no nasal discharge noted and no epistaxis <SHELBY Charles-BC - Last Filed: 10/28/22 00:41> Face and sinus: Yes normal facial exam, No abrasion and No laceration <SHELBY Charles-BC - Last Filed: 10/28/22 00:41> Mouth: Normal oral and palatal mucosa present, no drooling and no muffled voice <Paulette Serrano SHELBY-BC - Last Filed: 10/28/22 00:41> Eyes General: appearance normal, both eyes and all related structures <Paulette Serrano SHELBY-BC - Last Filed: 10/28/22 00:41> Periorbital: periorbital findings normal <Paulette DanielsonoSHELBY-BC - Last Filed: 10/28/22 00:41> Eyelids: Yes eyelids normal <SHELBY Charles-BC - Last Filed: 10/28/22 00:41> Conjunctivae: conjunctivae normal <SHELBY Charles-BC - Last Filed: 10/28/22 00:41> Pupils: Equal, round and reactive pupils present <Paulette Danielsonjerry NUCLEAR AUXILIARY OPERATOR-BC - Last Filed: 10/28/22 00:41> EOM: EOMs intact bilaterally <SHELBY Charles-BC - Last Filed: 10/28/22 00:41> Neck Neck: Yes normal visual inspection, Yes full ROM and Yes no lymphadenopathy <SHELBY Charles-BC - Last Filed: 10/28/22 00:41> Chest Chest palpation & inspection: normal inspection of the chest <Paulette Danielsonjerry SHELBY-BC - Last Filed: 10/28/22 00:41> Resp Effort & Inspection: normal respiratory effort and able to speak in complete sentences <Paulette Danielsonjerry SHELBY-BC - Last Filed: 10/28/22 00:41> Auscultation: clear to auscultation bilaterally <Paulette Danielsonjerry NUCLEAR AUXILIARY OPERATOR-BC - Last Filed: 10/28/22 00:41> Cardio Rate: regular rate <Paulette Danielsonjerry NUCLEAR AUXILIARY OPERATOR-BC - Last Filed: 10/28/22 00:41> Rhythm: regular rhythm <Paulette Danielsonjerry NUCLEAR AUXILIARY OPERATOR-BC - Last Filed: 10/28/22 00:41> GI Inspection: Yes normal to inspection <Paulette D Maggie, NUCLEAR AUXILIARY OPERATOR-BC - Last Filed: 10/28/22 00:41> Neuro General: patient oriented x3 and moves all extremities <Paulette Serrano, NUCLEAR AUXILIARY OPERATOR-BC - Last Filed: 10/28/22 00:41> Cranial nerves: Yes Equal, round and reactive pupils present <Paulette D Maggie, NUCLEAR AUXILIARY OPERATOR-BC - Last Filed: 10/28/22 00:41> Cognition (Neuro): normal cognition <Paulette D Maggie, NUCLEAR AUXILIARY OPERATOR-BC - Last Filed: 10/28/22 00:41> Motor exam (neuro): 5/5 motor strength present throughout <Paulette D Maggie, NUCLEAR AUXILIARY OPERATOR-BC - Last Filed: 10/28/22 00:41> Sensory Exam: Normal double simultaneous stimulation for sensation <Paulette D Maggie, NUCLEAR AUXILIARY OPERATOR-BC - Last Filed: 10/28/22 00:41> Coordination: [id number] test normal <Paulettedavion Danielsono, NUCLEAR AUXILIARY OPERATOR-BC - Last Filed: 10/28/22 00:41> Extrem General: Yes normal to inspection, Yes full ROM and Yes capillary refill normal <Paulette Rajesh Danielsono, NUCLEAR AUXILIARY OPERATOR-BC - Last Filed: 10/28/22 00:41> Psych Appearance: grossly normal <Paulette Rajesh Danielsono, NUCLEAR AUXILIARY OPERATOR-BC - Last Filed: 10/28/22 00:41> Mental Status: mental status grossly normal <Paulette Rajesh Danielsono, NUCLEAR AUXILIARY OPERATOR-BC - Last Filed: 10/28/22 00:41> Affect: normal affect <Paulette Danielsono, NUCLEAR AUXILIARY OPERATOR-BC - Last Filed: 10/28/22 00:41> Attitude: cooperative <Paulette Rajesh Danielsono, NUCLEAR AUXILIARY OPERATOR-BC - Last Filed: 10/28/22 00:41> Thought process: Normal thought process present <Paulette D Maggie, NUCLEAR AUXILIARY OPERATOR-BC - Last Filed: 10/28/22 00:41> Thought content: Normal thought content present <Paulette D Maggie, NUCLEAR AUXILIARY OPERATOR-BC - Last Filed: 10/28/22 00:41> Insight: Good insight present (Psych) <Paulette Danielsono, NUCLEAR AUXILIARY OPERATOR-BC - Last Filed: 10/28/22 00:41> Course Course Course Narrative: This is an RME: Additional HPI, ROS, PE not included below will be deferred to primary provider. This is a 79-[id number]-Faroese speaking female, has hx of complex ovarian cyst , who presents to the emergency department with complaints of lower abdominal pain x 2 days. Patient reports some nausea, no vomiting. VSS. Plans: Basic labs, UA ordered <YSABEL Livingston - Last Filed: 10/27/22 19:46> This is an RME: Additional HPI, ROS, PE not included below will be deferred to primary provider. This is a 65-[id number]-[id number]-Faroese speaking female, has hx of complex ovarian cyst , who presents to the emergency department with complaints of lower abdominal pain x 2 days. Patient reports some nausea, no vomiting. VSS. Plans: Basic labs, UA ordered 42-year-old female is here today for complaining of right lower quadrant discomfort. Patient was seen by her provider few days ago and was found to have right ovarian cyst. Patient had ultrasound done yesterday no results available yet. Patient denies any nausea or vomiting. Reports use urinary frequency and burning with urination. Patient denies any other GI concerning symptoms. <SHELBY Charles-JESS - Last Filed: 10/28/22 00:41> Reevaluation(s) Reevaluation #1: Patient reports feeling better after Toradol Awaiting CT scan results. <ABILIO Charles - Last Filed: 10/28/22 00:41> Reevaluation #2: CT scan showed small adnexal cyst, likely corresponding to hemorrhagic cyst that was seen on prior ultrasound. Moderate colonic stool burden seen as well. Patient will be sent home to follow-up with OBGYN provider. I will send her home with pain management as well as MiraLax to help her move her bowels better. <ABILIO Charles - Last Filed: 10/28/22 00:41> Medications Administered Discontinued Medications Generic Name Dose Route Start Last Admin Trade Name Freq PRN Reason Stop Dose Admin Ketorolac Tromethamine 15 mg 10/27/22 21:14 10/27/22 21:43 Ketorolac Tromethamine 15 Mg/Ml Vial IVPUSH 10/27/22 21:15 15 mg ONCE ONE Administration <YSABEL Livingston - Last Filed: 10/27/22 19:46> Medications Administered Discontinued Medications Generic Name Dose Route Start Last Admin Trade Name Sanam PRN Reason Stop Dose Admin Ketorolac Tromethamine 15 mg 10/27/22 21:14 10/27/22 21:43 Ketorolac Tromethamine 15 Mg/Ml Vial IVPUSH 10/27/22 21:15 15 mg ONCE ONE Administration <ABILIO Charles - Last Filed: 10/28/22 00:41> Medical Decision Making Medical Decision Making [facility] Narrative: 42-year-old female is here today for complaining of right lower quadrant discomfort. Patient was seen by her provider few days ago and was found to have right ovarian cyst. Patient had ultrasound done yesterday no results available yet. Patient denies any nausea or vomiting. Reports use urinary frequency and burning with urination. Patient denies any other GI concerning symptoms. CT scan showed small adnexal cyst, likely corresponding to hemorrhagic cyst that was seen on prior ultrasound. Moderate colonic stool burden seen as well. Patient will be sent home to follow-up with OBGYN provider. I will send her home with pain management as well as MiraLax to help her move her bowels better. <ABILIO Charles - Last Filed: 10/28/22 00:41> Differential Diagnosis Differential Diagnoses: The differential diagnosis associated with the presentation includes <ABILIO Charles - Last Filed: 10/28/22 00:41> Adnexal cyst, diverticulosis, diverticulitis, constipation, colitis <ABILIO Charles - Last Filed: 10/28/22 00:41> Lab Data [facility] Lab Attestation statement: I reviewed the patient's lab results. <ABILIO Charles - Last Filed: 10/28/22 00:41> Result Diagrams: 10/27/22 20:26 10/27/22 20:26 <YSABEL Livingston - Last Filed: 10/27/22 19:46> Labs: Lab Results 10/27/22 10/27/22 10/27/22 Range/Units 20:26 20:26 20:26 WBC 10.4 (4.8-10.8) X10*3/uL RBC 4.32 (4.20-5.50) X10*6/uL Hgb 13.0 (12.0-16.0) g/dl Hct 38.2 (37.0-47.0) % MCV 88.4 (80.0-98.0) fL MCH 30.1 (27.0-33.0) pg MCHC 34.0 (31.0-35.0) g/dl RDW 13.5 (11.0-16.0) % Plt Count 348 (160-400) X10*3/uL MPV 10.5 (9.4-12.3) fL Immature Gran % (Auto) 0.5 H (0.0-0.4) % Neut % (Auto) 60.5 (45-73) % Lymph % (Auto) 30.2 (20-40) % [place] % (Auto) 6.7 (2-11) % Eos % (Auto) 1.7 (0-4) % Baso % (Auto) 0.4 (0-2) % Lymph # (Auto) 3.1 (1.2-4.9) X10*3/uL [place] # (Auto) 0.7 (0.1-1.2) X10*3/uL Eos # (Auto) 0.2 (0.0-0.4) X10*3/uL Baso # (Auto) 0.0 (0.0-0.2) X10*3/uL Abs Immat Gran (auto) 0.05 H (0.00-0.03) X10*3/uL Absolute Neuts (auto) 6.3 (2.0-8.3) x10*3/uL Absolute Nucleated RBC 0.000 (0.0-0.012) X10*3/uL Nucleated RBC % (auto) 0.0 (0.0-0.2) /100WBC Sodium (135-145) mmol/L Potassium (3.3-5.1) mmol/L Chloride (96-108) mmol/L Carbon Dioxide (22-29) mmol/L Anion Gap (12-20) BUN (9-16) mg/dL Creatinine (0.5-1.4) mg/dL Estim Creat Clear Calc Estimated GFR Random Glucose (60-115) mg/dL Calcium (8.4-10.2) mg/dL Magnesium (1.6-2.6) mg/dL Total Bilirubin (0.0-1.0) mg/dL Direct Bilirubin (0.0-0.5) mg/dL AST (5-31) U/L ALT (0-31) U/L Alkaline Phosphatase (39-117) U/L Total Protein (6.5-8.0) g/dL Albumin (3.5-5.0) g/dL Lipase (8-78) U/L Urine Color Yellow Urine Appearance Clear Urine pH 6.0 (5.0-9.0) Ur Specific [place] 1.020 (1.005-1.025) Urine Protein Negative (Neg-Trace) mg/dL Urine Glucose (UA) Negative (Negative) mg/dL Urine Ketones Negative (Negative) mg/dL Urine Blood Negative (Negative) Urine Nitrite Negative (Negative) Ur Leukocyte Esterase Negative (Negative) Urine Test NEGATIVE (NEGATIVE) 10/27/22 Range/Units 21:43 WBC (4.8-10.8) X10*3/uL RBC (4.20-5.50) X10*6/uL Hgb (12.0-16.0) g/dl Hct (37.0-47.0) % MCV (80.0-98.0) fL MCH (27.0-33.0) pg MCHC (31.0-35.0) g/dl RDW (11.0-16.0) % Plt Count (160-400) X10*3/uL MPV (9.4-12.3) fL Immature Gran % (Auto) (0.0-0.4) % Neut % (Auto) (45-73) % Lymph % (Auto) (20-40) % [place] % (Auto) (2-11) % Eos % (Auto) (0-4) % Baso % (Auto) (0-2) % Lymph # (Auto) (1.2-4.9) X10*3/uL [place] # (Auto) (0.1-1.2) X10*3/uL Eos # (Auto) (0.0-0.4) X10*3/uL Baso # (Auto) (0.0-0.2) X10*3/uL Abs Immat Gran (auto) (0.00-0.03) X10*3/uL Absolute Neuts (auto) (2.0-8.3) x10*3/uL Absolute Nucleated RBC (0.0-0.012) X10*3/uL Nucleated RBC % (auto) (0.0-0.2) /100WBC Sodium 140 (135-145) mmol/L Potassium 3.6 (3.3-5.1) mmol/L Chloride 100 (96-108) mmol/L Carbon Dioxide 29 (22-29) mmol/L Anion Gap 15 (12-20) BUN 16 (9-16) mg/dL Creatinine 0.75 (0.5-1.4) mg/dL Estim Creat Clear Calc 68.9 Estimated GFR > 60 Random Glucose 101 (60-115) mg/dL Calcium 10.1 (8.4-10.2) mg/dL Magnesium 2.0 (1.6-2.6) mg/dL Total Bilirubin 0.3 (0.0-1.0) mg/dL Direct Bilirubin 0.1 (0.0-0.5) mg/dL AST 17 (5-31) U/L ALT 24 (0-31) U/L Alkaline Phosphatase 41 (39-117) U/L Total Protein 7.4 (6.5-8.0) g/dL Albumin 4.2 (3.5-5.0) g/dL Lipase 71 (8-78) U/L Urine Color Urine Appearance Urine pH (5.0-9.0) Ur Specific [place] (1.005-1.025) Urine Protein (Neg-Trace) mg/dL Urine Glucose (UA) (Negative) mg/dL Urine Ketones (Negative) mg/dL Urine Blood (Negative) Urine Nitrite (Negative) Ur Leukocyte Esterase (Negative) Urine Test (NEGATIVE) <YSABEL Livingston - Last Filed: 10/27/22 19:46> Lab Results 10/27/22 10/27/22 10/27/22 Range/Units 20:26 20:26 20:26 WBC 10.4 (4.8-10.8) X10*3/uL RBC 4.32 (4.20-5.50) X10*6/uL Hgb 13.0 (12.0-16.0) g/dl Hct 38.2 (37.0-47.0) % MCV 88.4 (80.0-98.0) fL MCH 30.1 (27.0-33.0) pg MCHC 34.0 (31.0-35.0) g/dl RDW 13.5 (11.0-16.0) % Plt Count 348 (160-400) X10*3/uL MPV 10.5 (9.4-12.3) fL Immature Gran % (Auto) 0.5 H (0.0-0.4) % Neut % (Auto) 60.5 (45-73) % Lymph % (Auto) 30.2 (20-40) % [place] % (Auto) 6.7 (2-11) % Eos % (Auto) 1.7 (0-4) % Baso % (Auto) 0.4 (0-2) % Lymph # (Auto) 3.1 (1.2-4.9) X10*3/uL [place] # (Auto) 0.7 (0.1-1.2) X10*3/uL Eos # (Auto) 0.2 (0.0-0.4) X10*3/uL Baso # (Auto) 0.0 (0.0-0.2) X10*3/uL Abs Immat Gran (auto) 0.05 H (0.00-0.03) X10*3/uL Absolute Neuts (auto) 6.3 (2.0-8.3) x10*3/uL Absolute Nucleated RBC 0.000 (0.0-0.012) X10*3/uL Nucleated RBC % (auto) 0.0 (0.0-0.2) /100WBC Sodium (135-145) mmol/L Potassium (3.3-5.1) mmol/L Chloride (96-108) mmol/L Carbon Dioxide (22-29) mmol/L Anion Gap (12-20) BUN (9-16) mg/dL Creatinine (0.5-1.4) mg/dL Estim Creat Clear Calc Estimated GFR Random Glucose (60-115) mg/dL Calcium (8.4-10.2) mg/dL Magnesium (1.6-2.6) mg/dL Total Bilirubin (0.0-1.0) mg/dL Direct Bilirubin (0.0-0.5) mg/dL AST (5-31) U/L ALT (0-31) U/L Alkaline Phosphatase (39-117) U/L Total Protein (6.5-8.0) g/dL Albumin (3.5-5.0) g/dL Lipase (8-78) U/L Urine Color Yellow Urine Appearance Clear Urine pH 6.0 (5.0-9.0) Ur Specific [place] 1.020 (1.005-1.025) Urine Protein Negative (Neg-Trace) mg/dL Urine Glucose (UA) Negative (Negative) mg/dL Urine Ketones Negative (Negative) mg/dL Urine Blood Negative (Negative) Urine Nitrite Negative (Negative) Ur Leukocyte Esterase Negative (Negative) Urine Test NEGATIVE (NEGATIVE) 10/27/22 Range/Units 21:43 WBC (4.8-10.8) X10*3/uL RBC (4.20-5.50) X10*6/uL Hgb (12.0-16.0) g/dl Hct (37.0-47.0) % MCV (80.0-98.0) fL MCH (27.0-33.0) pg MCHC (31.0-35.0) g/dl RDW (11.0-16.0) % Plt Count (160-400) X10*3/uL MPV (9.4-12.3) fL Immature Gran % (Auto) (0.0-0.4) % Neut % (Auto) (45-73) % Lymph % (Auto) (20-40) % [place] % (Auto) (2-11) % Eos % (Auto) (0-4) % Baso % (Auto) (0-2) % Lymph # (Auto) (1.2-4.9) X10*3/uL [place] # (Auto) (0.1-1.2) X10*3/uL Eos # (Auto) (0.0-0.4) X10*3/uL Baso # (Auto) (0.0-0.2) X10*3/uL Abs Immat Gran (auto) (0.00-0.03) X10*3/uL Absolute Neuts (auto) (2.0-8.3) x10*3/uL Absolute Nucleated RBC (0.0-0.012) X10*3/uL Nucleated RBC % (auto) (0.0-0.2) /100WBC Sodium 140 (135-145) mmol/L Potassium 3.6 (3.3-5.1) mmol/L Chloride 100 (96-108) mmol/L Carbon Dioxide 29 (22-29) mmol/L Anion Gap 15 (12-20) BUN 16 (9-16) mg/dL Creatinine 0.75 (0.5-1.4) mg/dL Estim Creat Clear Calc 68.9 Estimated GFR > 60 Random Glucose 101 (60-115) mg/dL Calcium 10.1 (8.4-10.2) mg/dL Magnesium 2.0 (1.6-2.6) mg/dL Total Bilirubin 0.3 (0.0-1.0) mg/dL Direct Bilirubin 0.1 (0.0-0.5) mg/dL AST 17 (5-31) U/L ALT 24 (0-31) U/L Alkaline Phosphatase 41 (39-117) U/L Total Protein 7.4 (6.5-8.0) g/dL Albumin 4.2 (3.5-5.0) g/dL Lipase 71 (8-78) U/L Urine Color Urine Appearance Urine pH (5.0-9.0) Ur Specific [place] (1.005-1.025) Urine Protein (Neg-Trace) mg/dL Urine Glucose (UA) (Negative) mg/dL Urine Ketones (Negative) mg/dL Urine Blood (Negative) Urine Nitrite (Negative) Ur Leukocyte Esterase (Negative) Urine Test (NEGATIVE) <ABILIO Charles - Last Filed: 10/28/22 00:41> Independent Interpretation I performed an independent interpretation of an: CT Scan <ABILIO Charles - Last Filed: 10/28/22 00:41> Radiology Impression Discussion of test interpretation with radiology: I have reviewed the radiologist's reading. <ABILIO Charles - Last Filed: 10/28/22 00:41> Radiologist Impression: Abdominal CT scan FINDINGS: LUNG BASES: The visualized lung bases are unremarkable.? LIVER, GALLBLADDER, AND BILIARY TREE: The liver is normal in size, shape, and attenuation. No focal hepatic lesion or biliary ductal dilatation is present. The gallbladder is contracted with no evidence of radiopaque gallstones, gallbladder wall thickening, or obvious pericholecystic inflammatory changes.? PANCREAS: Unremarkable.? SPLEEN: Unremarkable.? ADRENAL GLANDS: Unremarkable.? KIDNEYS AND URETERS: The kidneys are normal in size, shape, and attenuation. No hydronephrosis, hydroureter, or calculi seen. No perinephric stranding. ? BLADDER: Unremarkable.? GASTROINTESTINAL TRACT: The stomach is unremarkable. Normal caliber of the small bowel. No obstruction. Normal appendix. Moderate diffuse colonic stool burden. No bowel wall thickening or inflammation. No free air. Small volume pelvic free fluid.? ABDOMINAL WALL: No significant hernia is appreciated.? LYMPH NODES: Normal. VASCULAR: Unremarkable. PELVIC VISCERA: Anteverted uterus. Right adnexal cyst measures 3.4 x 2.4 cm, likely corresponding to the hemorrhagic cyst seen on prior ultrasound.? OSSEOUS STRUCTURES: No acute or suspicious osseous abnormality.? CT/CT abdomen pelvis wo IV con IMPRESSION: 1.? No acute finding of the abdomen or pelvis. No inflammatory changes. 2.? Right adnexal cyst, likely corresponding to the hemorrhagic cyst seen on prior ultrasound. Small volume pelvic free fluid. 3.? Moderate colonic stool burden. ? <Paulette Serrano, NUCLEAR AUXILIARY OPERATOR-BC - Last Filed: 10/28/22 00:41> Discharge Plan Discharge Clinical Impression: Complex ovarian cyst Constipation Qualifiers: Constipation type: slow transit constipation Qualified Code(s): K59.01 - Slow transit constipation <YSABEL Livingston - Last Filed: 10/27/22 19:46> Patient Disposition: Home, Self-Care <YSABEL Livingston - Last Filed: 10/27/22 19:46> Instructions: Ovarian Cyst (ED), Constipation (ED) <YSABEL Livingston - Last Filed: 10/27/22 19:46> Additional Instructions: You were seen here today for abdominal discomfort. CT scan showed that you do have cyst on your right ovary. You will be given medications to help you with pain. CT scan also showed that you were constipated. Please make sure that you take MiraLax daily to help you move your bowels better. Please make sure that he called Dr. Anglin's office on Saturday for follow-up appointment <YSABEL Livingston - Last Filed: 10/27/22 19:46> Prescriptions: New polyethylene glycol 3350 [Miralax] 17 gram/dose powder 17 g PO DAILY Qty: 119 0RF tramadol 50 mg tablet 50 mg PO DAILY PRN (Reason: pain) Qty: 7 0RF No Action albuterol sulfate 90 mcg/actuation HFA aerosol inhaler 2 puff inhalation Q4-6H PRN (Reason: shortness of breath or wheezing) Qty: 6.7 0RF acetaminophen [Tylenol Extra Strength] 500 mg tablet 500 mg PO Q6H PRN (Reason: pain or fever) Qty: 20 0RF fluticasone propionate [Flonase Allergy Relief] 50 mcg/actuation spray,suspension 2 spray intranasal DAILY Qty: 16 0RF Rx Instructions: administer into each nostril rosuvastatin 5 mg tablet 1 tab PO DAILY ibuprofen 600 mg tablet 600 mg PO Q8H PRN (Reason: pain) Qty: 60 0RF chlorthalidone 25 mg tablet 25 mg PO DAILY loratadine 10 mg tablet 10 mg PO DAILY <YSABEL Livingston - Last Filed: 10/27/22 19:46> Referrals: Lavon Anglin MD [Physician] - <YSABEL Livingston - Last Filed: 10/27/22 19:46>
[2022-10-27 20:31] LABS: MANUAL DIFF FLAG NO
[2022-10-27 20:53] LABS: Basophils Percent Auto 0.4 % (0-2); Eosinophils Absolute Auto 0.2 X10*3/uL (0.0-0.4); Eosinophils Percent Auto 1.7 % (0-4); Hematocrit 38.2 % (37.0-47.0); Imm Gran Abs Auto 0.05 X10*3/uL (0.00-0.03); Imm Gran Pct Auto 0.5 % (0.0-0.4); Lymphocytes Absolute Auto 3.1 X10*3/uL (1.2-4.9); Lymphocytes Percent Auto 30.2 % (20-40); Mean Corpuscular Hemoglobin 30.1 pg (27.0-33.0); Mean Corpuscular Volume 88.4 fL (80.0-98.0); Mean Platelet Volume 10.5 fL (9.4-12.3); Monocytes Absolute Auto 0.7 X10*3/uL (0.1-1.2); Monocytes Percent Auto 6.7 % (2-11); Neutrophils Absolute Auto 6.3 x10*3/uL (2.0-8.3); Neutrophils Percent Auto 60.5 % (45-73); Platelet Count 348 X10*3/uL (160-400); Red Blood Count 4.32 X10*6/uL (4.20-5.50); Red Cell Distribution Width 13.5 % (11.0-16.0); White Blood Count 10.4 X10*3/uL (4.8-10.8)
[2022-10-27 20:54] LABS: Appearance Urine Clear; Color Urine Yellow; Glucose Urine UA Negative (Negative); Leukocyte Esterase Urine Negative (Negative); Nitrite Urine Negative (Negative); Urine Blood Negative (Negative); Urine Ketones Negative (Negative); Urine Protein Negative (Neg-Trace)
[2022-10-27 20:56] LABS: UPreg QC Valid YES
[2022-10-27 20:58] LABS: Urine Pregnancy NEGATIVE (NEGATIVE)
[2022-10-27] MEDS: Ketorolac Tromethamine 15 MG/ML VIAL IVPUSH (21:43)
[2022-10-27 21:47] VITALS: BP 125/69; PULSE 77; RESP 16; O2SAT 98
[2022-10-27 22:07] LABS: Alanine Aminotransferase 24 U/L (0-31); Albumin Level 4.2 g/dL (3.5-5.0); Alkaline Phosphatase 41 U/L (39-117); Anion Gap 15 (12-20); Aspartate Amino Transferase 17 U/L (5-31); Bilirubin Direct 0.1 mg/dL (0.0-0.5); Bilirubin Total 0.3 mg/dL (0.0-1.0); Blood Urea Nitrogen 16 mg/dL (9-16); Calcium 10.1 mg/dL (8.4-10.2); Carbon Dioxide 29 mmol/L (22-29); Chloride 100 mmol/L (96-108); Creatinine Clr Calc Pharmacy 68.9; Estimated Glomerular Filt Rate > 60; Glucose Random 101 mg/dL (60-115); Lipase 71 U/L (8-78); Potassium 3.6 mmol/L (3.3-5.1); Sodium 140 mmol/L (135-145); Total Protein 7.4 g/dL (6.5-8.0)
--- NOTE | 2022-10-27 22:48 | PC.NURSE ---
Pt A&Ox4, reports 8/10 intermittent squeezing RLQ pain that radiates to right lower flank. Pt RLQ tender to touch, reports last BM was this AM and normal for self, + bowel sounds x 4 quadrants, denies any N/V. IV line placed, med given as ordered. Pt reports effectiveness to med given. Awaiting Ct scan.
== END 2022-10-28 00:45 | disposition home or self-care (01) ==
PROVIDERS: Nurse Practitioner Family; Physician Assistant Medical; Emergency Provider Internal Medicine
DX: N83.291 Other ovarian cyst, right side (principal); K59.01 Slow transit constipation; Z79.02 Long term (current) use of antithrombotics/antiplatelets; Z79.899 Other long term (current) drug therapy
CPT/HCPCS: 36415; 74176; 80048; 80076; 81003; 81025; 83690; 83735; 85025; 96374; 99284; J1885

== ENCOUNTER 2022-11-06 11:42 | Outpatient (REF) | payer MEDICAID, SELFPAY ==
[2022-11-09 11:53] LABS: CA-125 14 U/mL (<35)
== END 2022-11-06 11:43 | disposition home or self-care (01) ==
LOC: HO.LAB 11:42
PROVIDERS: Visit Provider Obstetrics & Gynecology
DX: N83.299 Other ovarian cyst, unspecified side (principal)
CPT/HCPCS: 36415; 81025; 86304; 99212

== ENCOUNTER 2023-03-06 14:39 | Outpatient (REF) | payer MEDICAID, SELFPAY ==
--- NOTE | ~2023-03-06 | US_ITS ---
EXAMINATION: US PELVIS COMPLETE CLINICAL INFORMATION: Ovarian cyst COMPARISON: Pelvic ultrasound 10/26/2022 TECHNIQUE: Transabdominal and transvaginal imaging was performed. FINDINGS: The uterus is of normal size and echogenicity measuring 8.6 x 4.0 x 5.8 cm. A regular homogeneous endometrium is identified measuring 0.6 cm. Both ovaries are of normal size and echogenicity. The right measures 3.6 x 2.1 x 2.1 cm for a volume of 8.5 mL. The left measures 3.7 x 1.6 x 2.0 cm for a volume of 6.2 mL. Resolution of the previously seen right ovarian hemorrhagic cyst. There is no pelvic free fluid. US/US pelvic and transvaginal IMPRESSION: Resolution of the previously seen right ovarian hemorrhagic cyst. Otherwise unremarkable pelvic ultrasound.
== END 2023-03-06 14:40 | disposition home or self-care (01) ==
LOC: HO.US 14:39
PROVIDERS: Visit Provider Obstetrics & Gynecology
DX: N83.299 Other ovarian cyst, unspecified side (principal)
CPT/HCPCS: 76830; 76856

== ENCOUNTER 2023-04-03 14:02 | Outpatient (AMB) | payer OTHER, MEDICAID, SELFPAY ==
[2023-04-03 14:05] VITALS: BP 112/62
--- NOTE | 2023-04-03 14:05 | MHC.OFFVIS ---
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 Pelvic ultrasound regarding done in 10/26/2022 showed right complex ovarian cyst, hemorrhagic cyst seen. A more recent repeat Pelvic ultrasound done on 03/07 showed the following: IMPRESSION: Resolution of the previously seen right ovarian hemorrhagic cyst. Otherwise unremarkable pelvic ultrasound. The patient had a workup regarding abnormal uterine bleeding and was counseled about options of treatment and decided to procedure Mirena IUD in since then has been having 2nd thoughts about it. The following workup was done.: H&H= 12.9/38.2 TSH, hCG, GC and chlamydia were negative. Ultrasound done showed endometrial polyp and a 1.9 cm right ovarian hypoechoic lesion possibly hemorrhagic cyst. Repeat ultrasound scheduled in August and a follow-up ultrasound appointment scheduled on 09/06/22. Hysteroscopy D&C showed normal endometrial cavity with no evidence of pathology D&C biopsy showed no evidence of hyperplasia and/or malignancy. Co testing was done in 07/21 was negative. Mammogram was BI-RADS 1in 06/21. [facility] Medical History Hypertension Surgical History H/O tubal ligation Social History Alcohol intake: current Alcohol intake frequency: holidays/special occasions only Alcohol type: hard liquor Patient Tobacco Use Status: Current everyday Tobacco user Tobacco use type: Cigarette Female Reproductive History Menstrual Age of Menarche: 11 Review of Systems Const All systems reviewed & are unremarkable except as noted in HPI and below Reports as per HPI and Reports no additional complaints GI Reports no additional complaints Reports no additional complaints Physical Exam Vital Signs: Last Vital Signs BP 112/62 04/03/23 14:05 Assessment & Plan Assessment & Plan (1) Complex ovarian cyst: Code(s): N83.299 - Other ovarian cyst, unspecified side Plan: Discussed with the patient ultrasound findings showing the previously identified complex cyst has resolved. The patient was instructed to call if symptoms recur. All questions were answered the patient verbalized understanding. (2) Abnormal uterine bleeding: Code(s): N93.9 - Abnormal uterine and vaginal bleeding, unspecified Plan: Mammogram ordered for 06/22 . Discussed with the patient the results of the work up done and options of treatment including but not limited to BCP's, cyclic Progesterone, Mirena IUD, endometrial ablation and hysterectomy. All pros, cons, risks and benefits of each option were discussed with the patient and the patient decided to go ahead with cyclic Provera, so a more detailed discussion re: Progesterone treatment including mechanism of action, benefits (regular menses, endometrial protection form unopposed estrogen and reduction in the risk of endometrial hyperplasia and/or cancer ...), risks (Thrombosis, mood changes, weight gain, breast soreness, ? increased breast ca, others). Instructions were given to schedule a 3 months follow-up appoint; patient verbalized understanding and agreed with the plan. Orders: Orders MM screening mammo BI 2 Months Z12.31 - Encounter for screening mammogram for malignant neoplasm of breast Medications: New medroxyprogesterone (Provera) start Provera 1 tablet daily from day 15-24 cyclically every months, day 1 being 1st day of menses 10 mg PO DAILY 10 days 30 tabs 0RF Coding Level of Care Code Est Pt Level 3 (26919) Diagnoses Complex ovarian cyst N83.299 Abnormal uterine bleeding N93.9
== END 2023-04-03 15:18 | disposition home or self-care (01) ==
PROVIDERS: Visit Provider Obstetrics & Gynecology
DX: N83.299 Other ovarian cyst, unspecified side (principal); N93.9 Abnormal uterine and vaginal bleeding, unspecified
CPT/HCPCS: 99213

== ENCOUNTER → 2023-04-03 14:02 | Outpatient (BNVA) | payer MEDICAID, SELFPAY | PROVIDERS: Visit Provider Obstetrics & Gynecology | DX: N83.291 Other ovarian cyst, right side (principal); N93.9 Abnormal uterine and vaginal bleeding, unspecified | CPT/HCPCS: 99212 ==

== ENCOUNTER 2025-02-06 10:22 | Emergency (ER) | payer OTHER, SELFPAY ==
--- NOTE | ~2025-02-06 | XR_ITS ---
CLINICAL HISTORY: right heel pain erythema 2 view right calcaneus Comparison: None provided Findings: No acute fracture of the calcaneus is identified. Tiny plantar calcaneal spur. Subtalar joint is well-maintained. IMPRESSION: 1. No acute findings This document has been electronically signed by: Rolando Montero MD on 02/06/2025 11:54:44
[2025-02-06 10:35] VITALS: BP 130/91; PULSE 81; RESP 18; TEMP 36.6; O2SAT 98; BMI 21.6
[2025-02-06 11:02] LABS: MANUAL DIFF FLAG NO
[2025-02-06 11:08] LABS: Hematocrit 43.9 % (37.0-47.0); Hemoglobin 15.1 g/dl (12.0-16.0); Imm Gran Abs Auto 0.02 X10*3/uL (0.00-0.03); Imm Gran Pct Auto 0.2 % (0.0-0.4); Lymphocytes Absolute Auto 2.7 X10*3/uL (1.2-4.9); Mean Corpuscular HGB Conc 34.4 g/dl (31.0-35.0); Mean Corpuscular Hemoglobin 30.2 pg (27.0-33.0); Mean Corpuscular Volume 87.8 fL (80.0-98.0); NRBC Abs Auto 0.000 X10*3/uL (0.0-0.012); NRBC Pct Auto 0.0 /100WBC (0.0-0.2); Platelet Count 362 X10*3/uL (160-400); Red Blood Count 5.00 X10*6/uL (4.20-5.50); White Blood Count 10.3 X10*3/uL (4.8-10.8)
--- OUTSIDE RECORDS SUMMARY | 2025-02-06 14:09 | XMS_ITS | Clinical Summary ---
Author Organization [employer] Address [address] [place] [address] [address] [place] [address] Care Team Providers Care Diversional Therapist Name Role Phone Yael Mcpherson MD Primary Care Pro vider Allergies No known active allergies Medications acyclovir (Zovirax) 400 MG tablet take 1 tablet by oral route 3 times a day for 5 days, at 1st sign of cold sore 0 Active albuterol 108 (90 Base) MCG/ACT inhaler Inhale every 6 (six) hours. 1 Active Diclofenac Sodium (Voltaren) 1 % gel Apply 2 g topically every 6 (six) hours. 2 Active diphenhydrAMINE (BENADryl) 25 MG capsule Take 1 capsule by mouth every 4 (four) hours. 2 Active naproxen (Naprosyn) 500 MG tablet Take 1 tablet by mouth in the morning and 1 tablet in the evening. 2 Active triamcinolone (Kenalog) 0.1 % cream apply 2G by topical route 2 times every day a thin layer to the affected area(s) x 2 weeks 2 Active rosuvastatin (Crestor) 5 MG tabletIndication s:Hypertension, unspecified type Take 1 tablet (5 mg) by mouth in the morning. 90 tablet 3 3 Active Lidoderm 5 % patchIndications :Pain APPLY 1 TO 2 PATCHES TOPICALLY TO THE SKIN EVERY DAY. MAY WEAR UP TO 12 HOURS. NEEDED FOR PAIN 60 patch 3 Active loratadine (Claritin) 10 MG tabletIndication s:Seasonal allergies Take 1 tablet (10 mg) by mouth in the morning. 90 tablet 1 3 Active fluticasone (Flonase Allergy Relief) 50 MCG/ACT nasal spray Administer 1 spray into each nostril in the morning for 10 days. Administer 1-2 sprays into affected nostril(s) at bed time. 48 g 3 Active chlorthalidone (Hygroton) 25 MG tablet TAKE 1 TABLET BY MOUTH EVERY DAY 90 tablet 4 Active Active Problems Problem Noted Date Diagnosed Date Abnormal uterine bleeding (AUB) 12/25/2022 Overview (04/03/2023): Appt 05/21/22 with Principal Planner: complex ovarian cyst and AUB Endometrial Biopsy performed 06/01/22 showed Endometrium, curettage: Benign dyssynchronous endometrium with early to mid to late and secretory glands and late secretory stroma; no atypia or carcinoma. Hypertensive disorder 08/16/2022 Primary herpes simplex infection of lips 023 Mild intermittent asthma 12/08/2021 Seasonal allergies 12/08/2021 Overview (01/13/2023): Belt Maker Helper appt 10/17/22 Dust mite and pet avoidance (cats) Allergy testing performed Nasacort, cetirizine, DEN Prn, daily emollient Begin immunotherapy Social History Tobacco Use Types Packs/Day Years Used Date Smoking Tobacco: Every Day Cigarettes Passive Smoke Exposure: Current Smokeless Tobacco: Never Tobacco Cessation:Ready to Q uit: Not Asked; Counseling Given: Not Answered Comments Unknown Sex and Gender Information Value Date Recorded Sex Assigned at Female 04/30/2022 10:36 AM EDT Legal Sex Female 10:36 AM EDT Gender Identity Female 04/30/2022 10:36 AM EDT Sexual Orientation Straight 04/30/2022 10 :36 AM EDT Last Filed Vital Signs Vital Sign Reading Time Taken Comments Blood Pressure 125/72 03/19/2023 4:57 PM EDT Pulse 86 03/19/2023 4:57 PM EDT Temperature 36.8 C (98.2 F) 03/19/2023 4:57 PM EDT Respiratory Rate 16 03/19/2023 4:57 PM EDT Oxygen Saturation 98% 03/19/2023 4:57 PM EDT Inhaled Oxygen Concentration - - Weight 51.7 kg (114 lb) 03/19/2023 4:57 PM EDT Height 144.8 cm (4' 9 ) 03/19/2023 4:57 PM EDT Body Mass Index 24.67 03/19/2023 4:57 PM EDT Plan of Treatment Health Maintenance Due Date Last Done Comments Depression Screening 1982 SDOH Screening 1982 Disability Screening 1982 Alcohol/Substance Use Screening 1994 Family Planning (PISQ) 1997 HPV Vaccines (1 - 3-dose series) 1997 Hepatitis B Vaccines (1 of 3 - 19+ 3-dose series) 2001 Pneumococcal Vaccine: Pediatrics (0 to 5 Years) and At-Risk Patients (6 to 49) Years (1 of 2 - PCV) 2001 Mammogram 2022 COVID-19 Vaccine (2023-2 5 season) 2024 07/25/2021, 11/17/2020, 10/27/2020 Tobacco Screening 03/19/2024 03/19/2023 Influenza Vaccine (#1) 2025 Cervical Cancer Screening 07/19/2025 HPV/Cotest 07/19/2025 07/19/2020 Pap Smear 07/19/2025 07/19/2020 Lipid Panel 12/20/2026 12/20/2021, 12/08/2021 DTaP/Tdap/Td Vaccines (2 - T d or Tdap) 09/03/2029 09/04/2019 Zoster Vaccines (1 of 2) 2032 RSV Patients and Patients Aged 60 years or older (1 - 1-dose 75+ series) 2057 HIV Screening Completed 09/15/2019 Hepatitis C Screening Completed 09/15/2019 HIB Vaccines Aged Out No longer eligi ble based on patient's age to complete this topic Hepatitis A Vaccines Aged Out No long er eligible based on patient's age to complete this topic IPV Vaccines Aged Out No longer eligi ble based on patient's age to complete this topic Meningococcal B Vaccine Aged Out No l onger eligible based on patient's age to complete this topic Meningococcal Vaccine Aged Out No andrews giuliano eligible based on patient's age to complete this topic RSV under 20 months Aged Out No longe r eligible based on patient's age to complete this topic Rotavirus Vaccines Aged Out No longer eligible based on patient's age to complete this topic Procedures Procedure Name Priority Date/Time Associated Diagnosis Comments LIPID PANEL, STANDARD Routine 12/20/2021 8:56 AM EDT [facility]ZZ HISTORICAL HPV DNA, HIGH RISK, CERVICAL Routine 07/19/2020 12:00 AM EST [facility]P [facility] SYSTEM PAP Routine 07/19/2020 12:00 AM EST [facility] HISTORICAL HEPATITIS C ANTIBODY RFLX Routine 09/15/2019 8:50 AM EDT [facility] HISTORICAL HIV AB/AG Routine 09/15/2019 8:50 AM EDT from Last 3 Months or Most Recently Relevant to Health Maintenance Results * (ABNORMAL) LIPID PANEL, STANDARD (12/20/2021 8:56 AM EDT) Chol/HDLC Ratio 4.9 <5.0 (calc) [facility] Cholesterol, Total 260(H) <200 mg/dL [facility] HDL Cholesterol 53 > OR = 50 mg/dL [facility] LDL Cholesterol 162(H) mg/dL (calc) [facility] Comment: Reference range: <100 Desirable range <100 mg/dL for primary prevention; <70 mg/dL for patients with CHD or diabetic patients with > or = 2 CHD risk factors. LDL-C is now calculated using the Allan-Derick calculation, which is a validated novel method providing better accuracy than the Friedewald equation in the estimation of LDL-C. Allan SS et al. MARIA FERNANDA. 2013;310(19): 7947-7371 (http://education.Dympol.Brainscape/faq/NNP263) Non-HDL Cholesterol 207(H) <130 mg/dL (calc) [facility] Comment: For patients with diabetes plus 1 major ASCVD risk factor, treating to a non-HDL-C goal of <100 mg/dL (LDL-C of <70 mg/dL) is considered a therapeutic option. Triglycerides 273(H) <150 mg/dL [facility] Comment: If a non-fasting specimen was collected, consider repeat triglyceride testing on a fasting specimen if clinically indicated. Cristofer et al. J. of Clin. Lipidol. 2015;9:129-169. 12/20/2021 8:56 AM EDT Philomena Macey Zambrano AIRPLANE ELECTRICAL REPAIRER LAB BLOOD ORDERABLES Final Result Performing Organization Address [facility] de Phone Number [facility] [address] [place] [address], * HPV DNA, HIGH RISK, CERVICAL (07/19/2020 12:00 AM EST) HPV DNA, HIGH RISK, CERVICAL Not Detected NOT DETECTED [facility] Comment: Not Detected High Risk HPV types (16,18,31,33,35,39,45,51,52, 56,58,59,66,68) were not detected. Other HPV types which cause anogenital lesions may be present. The significance of the other types of HPV in malignant processes has not been established. Methodology: Real Time PCR 07/19/2020 Historical Provider MD HISTORICAL/NON ORDERABLE LABS Final Result Performing Organization Address [facility] de Phone Number [facility] [place] [address], * THINPREP TIS PAP (07/19/2020 12:00 AM EST) Pathologist [facility] Clinical Information: None given [facility] COMMENT SEE COMMENT [facility] Comment: EXPLANATORY NOTE: The Pap is a screening test for cervical cancer. It is not a diagnostic test and is subject to false negative and false positive results. It is most reliable when a satisfactory sample, regularly obtained, is submitted with relevant clinical findings and history, and when the Pap result is evaluated along with historic and current clinical information. COMMENT: This Pap test has been evaluated with computer assisted technology. [facility] Software Build Engineer : SEE COMMENT [facility] Comment: GSG, CT(ASCP) CT screening location: [place] [address] Interpretation/R esult: Negative for intraepithelial lesion or malignancy. [facility] LMP: NONE GIVEN [facility] Prev. BX: NONE [facility]IVEN [facility] Prev. PAP: NONE GIVEN [facility] SOURCE: None given [facility] Statement Of Adequacy: SEE COMMENT [facility] Comment: Satisfactory for evaluation. Endocervical/transformation zone component present. 07/19/2020 Historical Provider LAB PATHOLOGY ORDERABLES Final Result Performing Organization Address [facility] de Phone Number [facility] [address] [place] [address], * HEPATITIS C ANTIBODY RFLX (09/15/2019 8:50 AM EDT) Pathologist [facility] HEPATITIS C ANTIBODY NONREACTIVE NONREACTIVE [facility] Comment: Antibodies to HCV not detected; does not exclude early acute HCV infection. 09/15/2019 8:50 AM EDT [facility] Provider HISTORICAL/NON ORDERABLE LABS Final Result Performing Organization Address [facility] [address] [place] [address], * HIV AB/AG (09/15/2019 8:50 AM EDT) HIV AG/AB NONREACTIVE NR [facility] Comment: HIV-1 p24 Ag and/or HIV-1/HIV-2 Ab not detected. A test result that is nonreactive does not exclude the possibility of exposure to or infection with HIV-1 and/or HIV-2. Nonreactive results in this assay for individuals with prior exposure to HIV-1 and/or HIV-2 may be due to antigen and antibody levels that are below the limit of detection of this assay. [employer] HIV Ag/Ab Combo assay result and supplemental assay results should be interpreted in conjunction with the patient's clinical presentation, history and other laboratory results. If the results are inconsistent with clinical evidence, additional testing is suggested to confirm the result. 09/15/2019 8:50 AM EDT [facility] Provider HISTORICAL/NON ORDERABLE LABS Final Result [facility] [address] from Last 3 Months or Most Recently Relevant to Health Maintenance Insurance [employer] C3 Care Teams Diversional Therapist Relationship Specialty Start Date End Date Yael Mcpherson MD [address] [place] [id number] PCP - General Internal Medicine 04/04/23
--- NOTE | 2025-02-06 14:41 | ED.GENADULT ---
[facility] - General Adult General Chief complaint: Extremity Problem Stated complaint: pain on right foot Time Seen by Provider: 02/06/25 14:02 Source: patient and family Mode of arrival: ambulatory History of Present Illness ED Provider: Tessa FAN narrative: 44-year-old female who reports that since yesterday she has had right heel discomfort, denies any traumatic injury, denies any fever, chills, redness or swelling. Hurts most when she is plantar flexed Related Data Home Medications ?Medication ?Instructions ?Recorded ?Confirmed chlorthalidone 25 mg tablet 25 mg PO DAILY 05/03/22 05/29/22 loratadine 10 mg tablet 10 mg PO DAILY 05/03/22 05/29/22 rosuvastatin 5 mg tablet 1 tab PO DAILY 05/29/22 05/29/22 Previous Rx's ?Medication ?Instructions ?Recorded acetaminophen 500 mg tablet 500 mg PO Q6H PRN pain or fever 01/06/21 (Tylenol Extra Strength) #20 tabs albuterol sulfate 90 mcg/actuation 2 puff inhalation Q4-6H PRN 01/06/21 aerosol inhaler shortness of breath or wheezing #6.7 grams fluticasone propionate 50 2 spray intranasal DAILY #16 grams 01/06/21 mcg/actuation nasal spray,suspension (Flonase Allergy Relief) ibuprofen 600 mg tablet 600 mg PO Q8H PRN pain #60 tabs 10/01/22 polyethylene glycol 3350 17 17 g PO DAILY #119 grams 10/28/22 gram/dose oral powder (Miralax) tramadol 50 mg tablet 50 mg PO DAILY PRN pain #7 tabs 10/28/22 medroxyprogesterone 10 mg tablet 10 mg PO DAILY 10 days #30 tabs 04/03/23 (Provera) Allergies Allergy/AdvReac Type Severity Reaction Status Date / Time No Known Allergies Allergy Verified 02/06/25 10:40 Review of Systems Review of Systems: Pertinent positives and negatives as stated in HPI [facility] Past Medical History Source: nursing notes reviewed Medical History Hypertension Surgical History H/O tubal ligation Social History Social History Alcohol intake: current Alcohol intake frequency: holidays/special occasions only Alcohol type: hard liquor Patient Tobacco Use Status: Current everyday Tobacco user Tobacco use type: Cigarette Advance Directives: No Advance Directives Information Provided: Yes Physical Exam ED Exam Exam: VITAL SIGNS: Reviewed. GENERAL: Well developed, well nourished, in no acute distress. HEAD: Normocephalic/atraumatic EYES: PERRLA, EOMI LUNGS: Normal breath sounds. No adventitious sounds or accessory muscle use. CARDIOVASCULAR: Regular rate and rhythm without noted murmurs ABDOMEN: Soft, non-tender, non-distended with bowel sounds. MUSCULOSKELETAL: No tenderness, deformities, or effusions noted on gross inspection. EXTREMITIES: No cyanosis, clubbing or edema. RIGHT FOOT: No deformity, no edema, no erythema/induration, patient is able to both plantar and dorsiflex, palpable DP/PT, capillary refills less than 2 seconds, no midfoot tenderness SKIN: Inspection of the skin reveals no rashes NEUROLOGIC: Alert and oriented x 4. Strength and sensation to light touch were grossly intact x 4. Vital Signs: Vital Signs - 24 hr 02/06/25 10:35 Temperature 98 F Pulse Rate 81 Respiratory Rate 18 Blood Pressure 130/91 H Pulse Oximetry 98 Oxygen Delivery Method Room Air BMI result Body Mass Index 21.6 Medical Decision Making Medical Decision Making MDM Narrative: 44-year-old female with history and clinical presentation, DD DX: Suspect bone spur, no clinical findings to suggest plantar fasciitis, no injuries to otherwise indicate Achilles tendon rupture either complete or partial, no history to otherwise point towards any sort of fracture of the talus. Patient provided with combination analgesics. I reviewed and interpreted all investigations and hematologic indices are negative for leukocytosis, anemia, or thrombocytopenia. There is no indication to pursue chemistry studies, my interpretation of the x-ray is that there is no evidence of acute fracture subluxation, there is evidence of bone spur, there is no edema to otherwise suggest any sort of underlying inflammatory response or infectious etiologies. All results and findings discussed with the patient at bedside and she is otherwise discharged home with combination analgesics and Alli wrap but instructed to continue to range of motion the ankle to prevent stiffness. She is also directed to follow-up with your primary care doctor. Does not meet inpatient level of care, appears well/nontoxic and hemodynamically stable. Differential Diagnosis Differential Diagnoses: The differential diagnosis associated with the presentation includes See above Admission/Observation Consideration of admission/observation: Escalation of care including admission/observation considered Patient does not meet inpatient level of care Lab Data MDM Lab Attestation statement: I reviewed the patient's lab results. See above 02/06/25 10:59 02/06/25 10:59 Labs: Lab Results 02/06/25 Range/Units 10:59 WBC 10.3 (4.8-10.8) X10*3/uL RBC 5.00 (4.20-5.50) X10*6/uL Hgb 15.1 (12.0-16.0) g/dl Hct 43.9 (37.0-47.0) % MCV 87.8 (80.0-98.0) fL MCH 30.2 (27.0-33.0) pg MCHC 34.4 (31.0-35.0) g/dl RDW 13.4 (11.0-16.0) % Plt Count 362 (160-400) X10*3/uL MPV 10.1 (9.4-12.3) fL Immature Gran % (Auto) 0.2 (0.0-0.4) % Neut % (Auto) 67.0 (45-73) % Lymph % (Auto) 25.8 (20-40) % Storey % (Auto) 4.6 (2-11) % Eos % (Auto) 2.1 (0-4) % Baso % (Auto) 0.3 (0-2) % Lymph # (Auto) 2.7 (1.2-4.9) X10*3/uL Storey # (Auto) 0.5 (0.1-1.2) X10*3/uL Eos # (Auto) 0.2 (0.0-0.4) X10*3/uL Baso # (Auto) 0.0 (0.0-0.2) X10*3/uL Abs Immat Gran (auto) 0.02 (0.00-0.03) X10*3/uL Absolute Neuts (auto) 6.9 (2.0-8.3) x10*3/uL Absolute Nucleated RBC 0.000 (0.0-0.012) X10*3/uL Nucleated RBC % (auto) 0.0 (0.0-0.2) /100WBC Independent Interpretation I performed an independent interpretation of an: Plain X-Ray Interpretation: See above Radiology Impression Discussion of test interpretation with radiology: I have reviewed the radiologist's reading. Radiologist Impression: See above Discharge Plan Discharge Clinical Impression: Tendinitis Patient Disposition: Home, Self-Care Instructions: Tendinitis (ED) Additional Instructions: Tylenol 1000 mg, orally, every 6 hours as needed for pain control. Do not exceed 4000 mg within 24 hours. Ibuprofen 400 mg, orally with milk or food, every 6 hours as needed for pain control. I recommend taking the medication with Tylenol for improved symptom relief. Use the Alli wrap, but continue to move the foot as much as possible. Follow-up with your primary care doctor by calling the office on Saturday to set up an appointment for re-evaluation further outpatient management. Do not hesitate to return to the emergency room for any acute worsening of your symptoms. Prescriptions: No Action albuterol sulfate 90 mcg/actuation HFA aerosol inhaler 2 puff inhalation Q4-6H PRN (Reason: shortness of breath or wheezing) Qty: 6.7 0RF acetaminophen [Tylenol Extra Strength] 500 mg tablet 500 mg PO Q6H PRN (Reason: pain or fever) Qty: 20 0RF fluticasone propionate [Flonase Allergy Relief] 50 mcg/actuation spray,suspension 2 spray intranasal DAILY Qty: 16 0RF Rx Instructions: administer into each nostril rosuvastatin 5 mg tablet 1 tab PO DAILY ibuprofen 600 mg tablet 600 mg PO Q8H PRN (Reason: pain) Qty: 60 0RF polyethylene glycol 3350 [Miralax] 17 gram/dose powder 17 g PO DAILY Qty: 119 0RF tramadol 50 mg tablet 50 mg PO DAILY PRN (Reason: pain) Qty: 7 0RF chlorthalidone 25 mg tablet 25 mg PO DAILY loratadine 10 mg tablet 10 mg PO DAILY medroxyprogesterone [Provera] 10 mg tablet 10 mg PO DAILY 10 Days Qty: 30 0RF Rx Instructions: start Provera 1 tablet daily from day 15-24 cyclically every months, day 1 being 1st day of menses Print Language: Malay
[2025-02-06 15:00] VITALS: BP 130/91; PULSE 81; RESP 18; TEMP 36.6; O2SAT 98
== END 2025-02-06 15:01 | disposition home or self-care (01) ==
PROVIDERS: Emergency Provider Student in an Organized Health Care Education/Training Program
DX: M77.51 Other enthesopathy of right foot and ankle (principal); M79.671 Pain in right foot; I10 Essential (primary) hypertension; F17.210 Nicotine dependence, cigarettes, uncomplicated
CPT/HCPCS: 36415; 73650; 85025; 99283

== ENCOUNTER → 2025-02-06 10:55 | Outpatient (BNV) | payer OTHER, SELFPAY | PROVIDERS: Visit Provider Radiology Diagnostic Radiology | DX: M77.31 Calcaneal spur, right foot (principal) | CPT/HCPCS: 73650 ==

== ENCOUNTER 2025-06-26 08:42 | Outpatient (REF) | payer MEDICAID, SELFPAY ==
--- OUTSIDE RECORDS SUMMARY | 2025-06-26 08:45 | XMS_ITS | Encounter Summary ---
Author Organization [employer] Address [address] [place] [address] [address], [place] [address] Care Team Providers Care Award Clerk Name Role Phone Philomena Zambrano SUPPLIER ENGINEER Primary Care Provider Yael Griffin MD Primary Care Pro vider Reason for Visit * Reason Comments Med Refill Encounter Details Date Type Department Care Team (Late st Contact Info) Description 09/17/2022 Refill [facility] [address] [place] [phone] Philomena Zambrano FNP Social History Tobacco Use Types Packs/Day Years Used Date Smoking Tobacco: Never Assessed Comments Unknown Sex and Gender Information Value Date Recorded Sex Assigned at Female 04/30/2022 10:36 AM EDT Legal Sex Female 10:36 AM EDT Gender Identity Female 04/30/2022 10:36 AM EDT Sexual Orientation Straight 04/30/2022 10 :36 AM EDT documented as of this encounter Plan of Treatment Upcoming Encounters Date Type Department Care Team (Late st Contact Info) Description 07/16/2025 10:00 AM EST Office Visit [facility] [address] [place] [phone] Yael Mcpherson MD [address] [place] [address] 08/31/2025 1:00 PM EST Office Visit [facility] [address] [place] [address] Lacey Akins, OD [address] [place] [address] documented as of this encounter Visit Diagnoses Not on filedocumented in this encounter Care Teams Award Clerk Relationship Specialty Start Date End Date Philomena Zambrano FNP PCP - General Family Medicine 04/24/21 04/03/23 Yael Mcpherson MD [address] [place] [id number] PCP - General Internal Medicine 04/04/23 documented as of this encounter
--- OUTSIDE RECORDS SUMMARY | 2025-06-26 08:45 | XMS_ITS | Clinical Summary ---
Author Organization [employer] Address [address] [place] [address] [address] [place] [address] Care Team Providers Care Aqueduct And Reservoir Keeper Name Role Phone Yael Mcpherson MD Primary Care Pro vider Allergies No known active allergies Medications * This document contains information received from the source organization and may not represent a complete record from that organization. acyclovir (Zovirax) 400 MG tablet take 1 tablet by oral route 3 times a day for 5 days, at 1st sign of cold sore 09/04/19 20 Active Diclofenac Sodium (Voltaren) 1 % gel Apply 2 g topically every 6 (six) hours. 12/09/19 22 Active diphenhydrAMIN E (BENADryl) 25 MG capsule Take 1 capsule by mouth every 4 (four) hours. 12/09/19 22 Active Lidoderm 5 % patchIndicatio ns:Pain APPLY 1 TO 2 PATCHES TOPICALLY TO THE SKIN EVERY DAY. MAY WEAR UP TO 12 HOURS. NEEDED FOR PAIN 60 patch 09/18/19 23 Active loratadine (Claritin) 10 MG tabletIndicati ons:Seasonal allergies Take 1 tablet (10 mg) by mouth in the morning. 90 tablet 1 09/18/19 23 Active nicotine (Nicoderm, Step 3) 7 MG/24HR patchIndicatio ns:Nicotine Dependence Place 1 patch on the skin 1 (one) time each day at the same time. 30 patch 2 04/23/20 25 Active nicotine polacrilex (Nicotine Mini) 2 MG lozenge Dissolve 1 lozenge (2 mg) in the mouth every 2 (two) hours if needed for smoking cessation. 100 lozenge 1 04/23/20 25 Active albuterol 108 (90 Base) MCG/ACT inhaler Inhale 2 puffs every 6 (six) hours if needed for wheezing. 18 g 2 04/23/20 25 Active chlorthalidone (Hygroton) 25 MG tablet TAKE 1 TABLET BY MOUTH EVERY DAY 90 tablet 06/11/20 25 Active chlorthalidone (Hygroton) 25 MG tablet TAKE 1 TABLET BY MOUTH EVERY DAY 90 tablet 03/17/20 25 025 Discontinued Active Problems Problem Noted Date Diagnosed Date HLD (hyperlipidemia) 04/23/2025 Health care maintenance 04/23/2025 Tobacco use disorder 04/23/2025 Insomnia 04/23/2025 Skin lesion 04/23/2025 Adjustment disorder with mixed anxiety and depre ssed mood 04/23/2025 Hypertensive disorder 08/16/2022 Primary herpes simplex infection of lips 023 Mild intermittent asthma 12/08/2021 Seasonal allergies 12/08/2021 Overview (01/13/2023): Telecommunications Line Installer appt 10/17/22 Dust mite and pet avoidance (cats) Allergy testing performed Nasacort, cetirizine, DEN Prn, daily emollient Begin immunotherapy Resolved Problems Problem Noted Date Diagnosed Date Resolved Date Depression with anxiety 04/23/202504/01 Abnormal uterine bleeding (AUB) 12/25/2022 04/23/2025 Overview (04/03/2023): Appt 05/21/22 with [facility]: complex ovarian cyst and AUB Endometrial Biopsy performed 06/01/22 showed Endometrium, curettage: Benign dyssynchronous endometrium with early to mid to late and secretory glands and late secretory stroma; no atypia or carcinoma. Encounters * This document contains information received from the source organization and may not represent a complete record from that organization. Date Type Department Care Team Description 06/11/2025 Refill [facility] [address] [place] [phone] Yael Mcpherson MD 04/26/2025 Travel 04/23/2025 9:15 AM EDT Office Visit [facility] [address] [place] [phone] Yael Mcpherson MD Hyperlipidemia, unspecified hyperlipidemia type (Primary Dx); Encounter for screening mammogram for malignant neoplasm of breast; Wheezing; Annual physical exam; Mild intermittent asthma, unspecified whether complicated; Hypertension, unspecified type; Health care maintenance; Tobacco use disorder; Depression with anxiety; Insomnia due to other mental disorder; Skin lesion; Adjustment disorder with mixed anxiety and depressed mood 04/23/2025 Orders Only [facility] [address] [place] [phone] Yael Mcpherson MD 04/23/2025 Travel 04/22/2025 Telephone [facility] [address] [place] [phone] Yael Mcpherson MD chart prep 04/16/2025 Patient Outreach [address] [phone] Yael Mcpherson MD Care Coordination ([facility] outreach for SDOH housing search-referral completed ) 04/16/2025 Patient Outreach [facility] [address] [place] [phone] Yael Mcpherson MD Pre-visit Planning (SDOH Screening positive and Tobacco screening negative) 04/02/2025 Population Health Risk Score [facility] () Department [address] [place] [phone] Provider, Population Health Generic from Last 3 Months Immunizations Immunization Administration Dates Next Due Tdap 09/04/2019 Family History Medical History Relation Name Comments uterine ca-34 y of age Cousin HTN,DM2 Father unspecified ca Maternal Grandfather HTN, CKD,DM2 Mother unspecified cancer Paternal Grandmother Relation Name Status Comments Cousin Alive Father Maternal Grandfather Mother Paternal Grandmother Social History Tobacco Use Types Packs/Day Years Used Date Smoking Tobacco: Former Cigarettes S tarted: 03/29/2025 Passive Smoke Exposure: Current Smokeless Tobacco: Never Tobacco Cessation:Counseling Given: Not Answered Comments:Started smoking 28 y of age until now Used to smoke for 18 y ,in average 2-3 cig a day , trying to stop , not smoking for 3 weeks Alcohol Use Standard Drinks/Week Comments Yes 0 (1 standard drink = 0.6 oz pur e alcohol) social Depression Answer Date Recorded Patient Health Questionnaire-9 Score 7 04/23/2025 Patient Health Questionnaire-9 Score 7 04/23/2025 Last PHQ-9: Questionnaire Data Not on file 1 Housing Stability Answer Date Recorded What is your housing situation today? I have devora wolf 04/16/[address] you li ve. Do you have problems with any of the following? None of the above 04/16/2025 Food Insecurity Answer Date Recorded Within the past 12 months, y ou worried that your food would run out before you got money to buy more: Sometimes True 2024 Within the past 12 months,th e food you bought just didn't last and you didn't have enough money to get more: Sometimes True 04/16/2025 Transportation Answer Date Recorded In the past 12 months, has l ack of transportation kept you from medical appts, meetings, work or from getting things needed for daily living? No 04/16/2025 Utilities Answer Date Recorded In the past 12 months, has t he electric, gas, oil or water company threatened to shut off services in your home? No 04/16/2025 Depression Answer Date Recorded Patient Health Questionnaire-2 Score 3 04/23/2025 Internet Access Answer Date Recorded Internet Access Q1 Yes 04/16/2025 Internet Access Q2 Not on file 04/16/2025 Comments Unknown Sex and Gender Information Value Date Recorded Sex Assigned at Female 04/30/2022 10:36 AM EDT Legal Sex Female 10:36 AM EDT Gender Identity Female 04/30/2022 10:36 AM EDT Sexual Orientation Straight 04/30/2022 10 :36 AM EDT Last Filed Vital Signs Vital Sign Reading Time Taken Comments Blood Pressure 118/78 04/23/2025 9:41 AM EDT Pulse 83 04/23/2025 9:41 AM EDT Temperature 36.2 C (97.1 F) 04/23/2025 9:41 AM EDT Respiratory Rate 20 04/23/2025 9:41 AM EDT Oxygen Saturation 98% 04/23/2025 9:41 AM EDT Inhaled Oxygen Concentration - - Weight 50.3 kg (111 lb) 04/23/2025 9:41 AM EDT Height 144.8 cm (4' 9 ) 04/23/2025 9:41 AM EDT Body Mass Index 24.02 04/23/2025 9:41 AM EDT Plan of Treatment Upcoming Encounters Date Type Department Care Team (Late st Contact Info) Description 07/16/2025 10:00 AM EST Office Visit [facility] [address] [place] [address] Yael Mcpherson MD [address] [place], [place] [phone] 08/31/2025 1:00 PM EST Office Visit [facility] [address] [place], [place] [phone] Lacey Akins, OD [address] [place], [place] [phone] Health Maintenance Due Date Last Done Comments Disability Screening 1982 Alcohol/Substance Use Screening 1994 Family Planning (PISQ) 1997 Hepatitis B Vaccines (1 of 3 - 19+ 3-dose series) 2001 Pneumococcal Vaccine: Pediatrics (0 to 5 Years) and At-Risk Patients (6 to 49) Years (1 of 2 - PCV) 2001 Mammogram 2022 COVID-19 Vaccine ( - 2024-2 6 season) 2025 07/25/2021, 11/17/2020, 10/27/2020 Influenza Vaccine (#1) 2025 HPV Vaccines (2 - 3-dose series) 05/21/2025 04/23/2025 Cervical Cancer Screening 07/19/2025 HPV/Cotest 07/19/2025 07/19/2020 Pap Smear 07/19/2025 07/19/2020 SDOH Screening 04/16/2026 04/16/2025 Depression Screening 04/23/2026 04/23/2025, 04/23/2025 Tobacco Screening 04/23/2026 04/23/2025 Lipid Panel 12/20/2026 12/20/2021, 12/08/2021 DTaP/Tdap/Td Vaccines [...] PANEL, STANDARD Routine 12/20/2021 8:56 AM EDT [facility] HISTORICAL HPV DNA, HIGH RISK, CERVICAL Routine 07/19/2020 12:00 AM EST [facility] PAP Routine 07/19/2020 12:00 AM EST [facility] H[facility]OR[facility] HEPATITIS C ANTIBODY RFLX Routine 09/15/2019 8:50 AM EDT [facility] HIV AB/AG Routine 09/15/2019 8:50 AM [...] factors. LDL-C is now calculated using the Allan-Sepulveda calculation, which is a validated novel method providing better accuracy than the Friedewald equation in the estimation of LDL-C. Allan SS et al. MARIA FERNANDA. 2013;310(19): 6635-4972 (http://education.Boxer/faq/YVI469) Non-HDL Cholesterol 207(H) <130 mg/dL (calc) [facility] Comment: For patients with diabetes plus 1 major ASCVD risk factor, treating to a non-HDL-C goal of <100 mg/dL (LDL-C of <70 mg/dL) is considered a therapeutic option. Triglycerides 273(H) <150 mg/dL [facility] Comment: If a non-fasting specimen was collected, consider repeat triglyceride testing on a fasting specimen if clinically indicated. Cristofer et al. J. of Clin. Lipidol. 2015;9:129-169. 12/20/2021 8:56 AM EDT Philomena Zambrano SHOP WELDER LAB BLOOD ORDERABLES Final Result Performing Organization Address [facility] de Phone Number [facility] [address] * HPV DNA, HIGH RISK, CERVICAL (07/19/2020 12:00 AM EST) HPV DNA, HIGH RISK, CERVICAL Not Detected NOT DETECTED [facility] Comment: Not Detected High Risk HPV types (16,18,31,33,35,39,45,51,52, 56,58,59,66,68) were not detected. Other HPV types which cause anogenital lesions may be present. The significance of the other types of HPV in malignant processes has not been established. Methodology: Real Time PCR 07/19/2020 Historical Provider HISTORICAL/NON ORDERABLE LABS Final Result Performing Organization Address [facility] Co de Phone Number [facility] [address] [place] [address], * THINPREP TIS PAP (07/19/2020 12:00 AM EST) Clinical Information: None given [facility] COMMENT SEE COMMENT [facility] [...] along with historic and current clinical information. Comment: This Pap test has been evaluated with computer assisted technology. [facility] Web Design Specialist : SEE COMMENT [facility] Comment: GSG, CT(ASCP) CT screening location: [place] [address] Interpretation/R esult: Negative for intraepithelial lesion or malignancy. [facility] LMP: NONE GIVEN [facility] Prev. BX: NONE GIVEN [facility] Prev. PAP: NONE GIVEN [facility] SOURCE: None given [facility] Statement Of Adequacy: SEE COMMENT [facility] Comment: Satisfactory for evaluation. Endocervical/transformation zone component present. 07/19/2020 Historical Provider MD LAB PATHOLOGY ORDERABLES Final Result Performing Organization Address [facility] de Phone Number [facility] [address] * HEPATITIS C ANTIBODY RFLX (09/15/2019 8:50 AM EDT) Pathologist [facility] HEPATITIS C ANTIBODY NONREACTIVE NONREACTIVE [facility] Comment: Antibodies to HCV not detected; does not exclude early acute HCV infection. 09/15/2019 8:50 AM EDT Historical Provider MD HISTORICAL/NON ORDERABLE LABS Final Result Performing Organization Address [facility] Co de Phone Number [facility] [address] * HIV AB/AG (09/15/2019 8:50 AM EDT) [...] of detection of this assay. The [employer] Production Superintendent HIV Ag/Ab Combo assay result and supplemental assay results should be interpreted in conjunction with the patient's clinical presentation, history and other laboratory results. If the results are inconsistent with clinical evidence, additional testing is suggested to confirm the result. 09/15/2019 8:50 AM EDT us Historical Provider HISTORICAL/NON ORDERABLE LABS Final Result [facility] [address] from Last 3 Months or Most Recently Relevant to Health Maintenance Insurance Care Teams Aqueduct And Reservoir Keeper Relationship Specialty Start Date End Date Yael Mcpherson MD [address] [place] [phone] PCP - General Internal Medicine 04/04/23
--- OUTSIDE RECORDS SUMMARY | 2025-06-26 08:45 | XMS_ITS | Encounter Summary ---
Author Organization [employer] Address [address] [place] [address] [address] [address] Care Team Providers Care Sap Manager Name Role Phone Philomena Zambrano LICENSED CLINICAL PSYCHOLOGIST Primary Care Provider Yael Griffin MD Primary Care Pro vider Reason for Visit * Reason Comments Med Refill Encounter Details Date Type Department Care Team (Late st Contact Info) Description 09/17/2022 Refill [facility] [address] [place] [id number] Philomena Zambrano FNP Pain Social History Tobacco Use Types Packs/Day Years [...] Encounters Date Type Department Care Team (Late Contact Info) Description 07/16/2025 10:00 AM EST Office Visit [facility] [address] [place] [phone] Yael Mcpherson MD [address] [place] [address] 08/31/2025 1:00 PM EST Office Visit [facility] [address] [place] [address] Lacey Akins, OD [address] [place] [address] documented as of this encounter Visit Diagnoses Diagnosis Pain Generalized pain documented in this encounter Care Teams Sap Manager Relationship Specialty Start Date End Date Philomena Zambrano FNP PCP - General Family Medicine 04/24/21 04/03/23 Yael Mcpherson MD [address] [place] [phone] PCP - General Internal Medicine 04/04/23 documented as of this encounter
--- OUTSIDE RECORDS SUMMARY | 2025-06-26 08:45 | XMS_ITS | Encounter Summary ---
Author Organization [employer] [facility] Address [address] [place] [address] 7 [place] [address] Care Team Providers Care Inventory Coordinator Name Role Phone Philomena Zambrano SCIENTIFIC PROGRAMMER ANALYST Primary Care Provider Yael Griffin MD Primary Care Pro vider Encounter Details Date Type Department Care Team (Latest Contact Info) Description 05/01/2021 Abstract [facility] CONVERSIONS Dental, Provider, DDS Social History Tobacco Use Types Packs/Day Years [...] Description 07/16/2025 10:00 AM EST Office Visit [facility] [address] [place] [address] Yael Mcpherson MD [address] [place] [address] 08/31/2025 1:00 PM EST Office Visit [facility] [address] [place] [address] Lacey Akins, OD [address] [place] [address] documented as of this encounter Visit Diagnoses Not on filedocumented in this encounter Care Teams Inventory Coordinator Relationship Specialty Start Date End Date Philomena Zambrano FNP PCP - General Family Medicine 04/24/21 04/03/23 Yael Mcpherson MD [address] [place] [phone] PCP - General Internal Medicine 04/04/23 documented as of this encounter
== END 2025-06-26 08:43 | disposition home or self-care (01) ==
LOC: HO.MAMMO 08:42
PROVIDERS: PCP Student in an Organized Health Care Education/Training Program; Visit Provider Student in an Organized Health Care Education/Training Program
DX: Z12.31 Encounter for screening mammogram for malignant neoplasm of breast (principal)
CPT/HCPCS: 77063; 77067

== ENCOUNTER → 2025-06-26 09:00 | Outpatient (BNV) | payer MEDICAID, SELFPAY | PROVIDERS: PCP Student in an Organized Health Care Education/Training Program; Visit Provider Internal Medicine | DX: Z12.31 Encounter for screening mammogram for malignant neoplasm of breast (principal) | CPT/HCPCS: 77063; 77067 ==